=== PATIENT | female | born 1995 | race Caucasian/White ===

== ENCOUNTER 2022-11-07 21:40 | Outpatient (REF) | payer MEDICAID, SELFPAY ==
[2022-11-11 15:10] LABS: Age Gdln ACOG Testing Note (.); IGP, rfx Aptima HPV ASCU Note (.)
== END 2022-11-07 21:41 | disposition home or self-care (01) ==
LOC: LAB 21:40
PROVIDERS: PCP Obstetrics & Gynecology; Visit Provider Obstetrics & Gynecology
DX: Z12.4 Encounter for screening for malignant neoplasm of cervix (principal); Z11.51 Encounter for screening for human papillomavirus (HPV)
CPT/HCPCS: G0145

== ENCOUNTER 2023-02-23 11:03 | Outpatient (OUT) | payer MEDICAID, SELFPAY ==
--- NOTE | 2023-02-23 11:11 | XR_ITS ---
[address] [address] Patient Name: KAIA FRIEND MRN: [id number] date: 1995 Sex: F Assigned Patient Location: [facility] Current Patient Location: Accession/Order Number: [id number] Exam Date: 02/23/2023 11:52 Report Date: 02/24/2023 09:17 At the request of: LRARY NAZARIO Procedure: XR chest 2V EXAM: XR chest 2V HISTORY: Preop exam COMPARISON: None. TECHNIQUE: PA and lateral views of the chest. FINDINGS: The cardiomediastinal silhouette is normal. No focal consolidation is identified. There is no pneumothorax. No pleural effusion is noted. The osseous structures are intact. XR/XR chest 2V IMPRESSION: No acute cardiopulmonary process. Electronically authenticated by: NILESH BOWLES Date: 02/24/2023 09:17
== END 2023-02-23 11:04 | disposition home or self-care (01) ==
LOC: PST 11:05
PROVIDERS: PCP Obstetrics & Gynecology; Visit Provider Obstetrics & Gynecology
DX: Z01.810 Encounter for preprocedural cardiovascular examination (principal); R87.612 Low grade squamous intraepithelial lesion on cytologic smear of cervix (LGSIL); F43.10 Post-traumatic stress disorder, unspecified
CPT/HCPCS: 71046

== ENCOUNTER 2023-03-02 11:15 | Day surgery (SDC) | payer MEDICAID, SELFPAY ==
[2023-02-23 11:41] VITALS: BP 112/72; PULSE 74; RESP 20; TEMP 36.3; O2SAT 100; BMI 19.4
[2023-03-02] VITALS (8 sets, daily range): BP systolic 111–122; BP diastolic 58–82; PULSE 72–101; RESP 12–24; TEMP 36.4; O2SAT 98–100; BMI 19.5
[2023-03-02 11:26] LABS: Basophils Percent Auto 0.7 % (0.2-2.0); Eosinophils Absolute Auto 0.2 10^3/uL (0.0-0.7); Eosinophils Percent Auto 3.4 % (0.9-7.0); Hematocrit 41.5 % (36.0-48.0); Hemoglobin 13.9 g/dL (12.0-16.0); Immature Granulocytes Abs Auto 0.01 10^3/uL (0.00-0.03); Immature Granulocytes Pct Auto 0.2 % (0.0-0.5); Lymphocytes Absolute Auto 2.2 10^3/uL (1.2-3.8); Lymphocytes Percent Auto 41.1 % (20.5-60.0); Mean Corpuscular HGB Conc 33.5 g/dL (29.9-35.2); Mean Corpuscular Volume 92.6 fL (81.0-99.0); Mean Platelet Volume 9.6 fL (9.5-13.5); Monocytes Absolute Auto 0.4 10^3/uL (0.3-0.8); Monocytes Percent Auto 7.1 % (1.7-12.0); Neutrophils Absolute Auto 2.5 10^3/uL (1.4-6.5); Neutrophils Percent Auto 47.5 % (43.0-75.0); Platelet Count 236 10^3/uL (150-450); Red Blood Count 4.48 10^6/uL (4.20-5.40); Red Cell Distribution Width 11.9 % (11.0-15.0); White Blood Count 5.4 10^3/uL (4.0-11.0)
[2023-03-02] MEDS: LACTATED RINGER'S SOLUTION 1,000 ML 50 ML IV (11:41)
[2023-03-02 11:47] LABS: HCG Quantitative <1 mIU/mL
[2023-03-02] MEDS: ONDANSETRON PF 4 MG/2 ML VIAL IV (11:57)
[2023-03-02] MEDS: FAMOTIDINE/PF 20 MG/2 ML VIAL IV (11:58)
--- NOTE | 2023-03-02 13:38 | PM.ONB ---
Brief Operative Note Date of procedure: 03/02/23 Pre-op diagnosis: cervical dysplasia, ptsd Post-op diagnosis: same as pre-op Procedure: colposcopy, exam under anesthesia pt was taken back to operating room where she was given anesthesia, placed in dorsal lithotomy position, the speculum was placed the cervix was identified, vinegar and lugols solution was used, the colposcopy was performed, no dysplasia seen, ecc was performed, pt was awaken by anesthesia after exam under anesthesia was performed(bimanual) excellent hemostasis Anesthesia: MAC Surgeon: Carlos Swain Estimated blood loss (mL): 2 Pathology: other (endocervical currettings) Condition: stable Disposition: PACU
--- NOTE | 2023-03-02 14:10 | PC.NURSE ---
no vaginal drainage noted
--- NOTE | 2023-03-02 14:52 | PC.NURSE ---
Up to bathroom and voids clear yellow without difficulty
== END 2023-03-02 14:54 | disposition home or self-care (01) ==
PROVIDERS: PCP Family Medicine; Visit Provider Obstetrics & Gynecology
PROC: (CPT 940; principal; 2023-03-02 12:30)
DX: R87.612 Low grade squamous intraepithelial lesion on cytologic smear of cervix (LGSIL) (principal); F43.10 Post-traumatic stress disorder, unspecified; F41.8 Other specified anxiety disorders; N93.0 Postcoital and contact bleeding; F31.81 Bipolar II disorder; F17.210 Nicotine dependence, cigarettes, uncomplicated
CPT/HCPCS: 57420; 36415; 84702; 85025; 88305; J2704

== ENCOUNTER 2023-09-13 19:58 | Outpatient (REF) | payer MEDICAID, SELFPAY ==
[2023-09-19 11:20] LABS: Pap IG (Image Guided) Note (.)
== END 2023-09-13 19:59 | disposition home or self-care (01) ==
LOC: LAB 19:58
PROVIDERS: PCP Family Medicine; Visit Provider Obstetrics & Gynecology
DX: R87.612 Low grade squamous intraepithelial lesion on cytologic smear of cervix (LGSIL) (principal)
CPT/HCPCS: G0145

== ENCOUNTER 2024-03-26 19:40 | Outpatient (REF) | payer MEDICAID, SELFPAY ==
--- OUTSIDE RECORDS SUMMARY | 2024-03-26 19:46 | XMS_ITS | CCD ---
Author Organization [facility] Care Team Providers Care Bicycle Technician Name Role Phone Hernan Armas DO Primary Care Provider BRYNN ., DR JUAREZ Attending Unavailable BRYNN ., DR JUAREZ Consulting Unavailable CHANDA, DR HERNAN Qiu Primary Care Unavailable BRYNN ., DR JUAREZ Admitting Unavailable HELGA TYLER Consulting Unavailable HANH PEREIRA Consulting Unavailable BRYNN ., DR JUAREZ Attending Unavailable BRYNN ., DR JUAREZ Admitting Unavailable BRYNN ., DR JUAREZ Admitting Unavailable BRYNN ., DR JUAREZ Attending Unavailable BRYNN ., DR JUAREZ Consulting Unavailable CHANDA, DR HERNAN Qiu Primary Care Unavailable BRYNN ., DR JUAREZ Attending Unavailable BRYNN ., DR JUAREZ Consulting Unavailable CHANDA, DR HERNAN Qiu Primary Care Unavailable BRYNN ., DR JUAREZ Admitting Unavailable HERNAN ARMAS Primary Care Unavailable Hernan Armas DO Primary Care Provider SHAYNA ROBERTS Attending Unavailable LARRY SWAIN Attending Unavailable CULLEN ALVAREZ L Attending Unavailable Cory Daly Attending Unavailable DELPHINE KHALIL Attending Unavailable Cory Daly Attending Unavailable Cory Daly Attending Unavailable Cory Daly Admitting Unavailable Hernan Armas MD Primary Care Provider Allergies Allergy Classification Reported Allergen(s) Allergy Type Date of Onset Reaction(s) Facility (9 sources) Doxycycline; Translations: [DOXYCYCLINE] Drug Allergy 2 Vomiting, GI intolerance [facility] (3 sources) Penicillins; Translations: [PENICILLINS] Propensity to adverse reactions to drug 2 Unknown [facility] Work Phone: (5 sources) Penicillins Propensity to adverse reactions to drug 2 Unknown [facility] Work Phone: (1 source) Benzoyl Peroxide Drug Allergy [facility] (1 source) Doxycycline Drug Allergy [facility] (1 source) Penicillin Drug Allergy [facility] (2 sources) Shellfish Drug allergy (disorder) [facility] (1 source) Liane-Q; Translations: [Liane-Q] Propensity to adverse reactions (disorder) [facility] (1 source) Benzoyl Peroxide Drug Allergy 3 [facility] (1 source) Penicillins Drug Intolerance 2 Unknown [facility] (1 source) Shellfish-Deriv ed Products Propensity to adverse reactions 3 [facility] Medications Current Medications Medication Drug Class(es) Dates Sig (Normalized) Sig (Original) enteric contrast (will be provided with radiology test) (1 source) Start: 10-21-2021 End: 10-21-2021 take 1 dose by mouth once, then take 1 dose by mouth once enteric contrast (will be provided with radiology test) Indications: Nausea and vomiting, unspecified vomiting type Take 1 Each by mouth one time only for [address] ABD/PEL WO Routine order Administer, As Directed One Time Only, via Oral, Rectal, both Oral and Rectal, Enteric Tube, Stoma or Indwelling Catheter, Enteric Contrast as designated per enteric contrast guidelines 1 Each 0 10/21/2021 10/21/2021 Active Comment on above: Take 1 Each by mouth one time only for [address] ABD/PEL WO Routine order Administer, As Directed One Time Only, via Oral, Rectal, both Oral and Rectal, Enteric Tube, Stoma or Indwelling Catheter, Enteric Contrast as designated per enteric contrast guidelines hydrOXYzine hydrochloride 10 mg oral tablet (1 source) Antihistamine take 2 tablets by mouth twice daily as needed for anxiety hydrOXYzine HCl (Atarax) 10 MG tablet 2 TAB(S) ORAL TWICE DAILY NEEDED FOR ANXIETY Active ondansetron 4 mg oral tablet (7 sources) Serotonin-3 Receptor Antagonist take 1 tablet by mouth every eight hours as needed for nausea ondansetron (Zofran) 4 MG tablet Take 4 mg by mouth every 8 (eight) hours if needed for nausea. Active Comment on above: Take 4 mg by mouth e very 8 hours as needed for nausea/vomiting. Completed/Discontinued Medications Medication Drug Class(es) Dates Sig (Normalized) Sig (Original) Albuterol (6 sources) beta2-Adrenergic Agonist ALBUTEROL INHALATION Inhale as instructed as needed. 0 Active Comment on above: Inhale as instructed as needed. 21 day ethinyl estradiol 0.337389 mg/hr / etonogestrel 0.005 mg/hr vaginal system (1 source) Progestin, Estrogen Start: 04-06-2012 End: 10-21-2021 Etonogestrel-Ethiny l Estradiol (NUVARING) 0.12-0.015 mg/24 hr vaginal ring Use 1 Each vaginally as directed. Insert vaginally and leave in place for 3 consecutive weeks, then remove for 1 week. 0 04/06/2012 10/21/2021 Discontinued (Course of therapy completed) Comment on above: Use 1 Each vaginally as directed. Insert vaginally and leave in place for 3 consecutive weeks, then remove for 1 week. ethinyl estradiol 0.035 mg / norgestimate 0.25 mg oral tablet (7 sources) Progestin, Estrogen Start: 03-11-2024 End: 03-26-2024 take 1 tablet by mouth once daily norgestimate-ethiny l estradiol (Sprintec 28) 0.25-35 MG-MCG tablet Indications: Encounter for surveillance of contraceptive pills Take 1 tablet by mouth Daily 90 tablet 03/11/2024 03/26/2024 Discontinued (Reorder) Start: 09-20-2021 take 1 tablet by yohannes th once daily norgestimate 0.25 mg-ethinyl estradiol 35 mcg (SPRINTEC, ORTHO-CYCLEN) 0.25-35 mg-mcg per tablet Take 1 tablet by mouth once daily. 0 09/20/2021 Active Comment on above: Take 1 tablet by yohannes th once daily. lamoTRIgine 100 mg oral tablet (1 source) Mood Stabilizer, Anti-epileptic Agent End: 03-26-20 24 lamoTRIgine (LaMICtal) 100 MG tablet 1 (one) time each day at the same time 03/26/2024 Discontinued lurasidone hydrochloride 40 mg oral tablet (1 source) Atypical Antipsychotic End: 03-26-20 24 lurasidone (Latuda) 40 MG tablet 1 (one) time each day at the same time 03/26/2024 Discontinued tiZANidine 2 mg oral capsule (1 source) Central alpha-2 Adrenergic Agonist End: 03-26-20 tiZANidine (Zanaflex) 2 MG capsule Take 2 mg by mouth as needed at bedtime. 03/26/2024 Discontinued traZODone hydrochloride 50 mg oral tablet (1 source) Serotonin Reuptake Inhibitor Start: 09-14-19 End: 03-26-20 24 take 1 tablet by mouth at bedtime traZODone (Desyrel) 50 MG tablet Take 50 mg by mouth at bedtime. 09/13/2022 03/26/2024 Discontinued Problems Active Problems Problem Classification Problem Date Documented Date Episodic/Chronic Anxiety disorders (2 sources) Anxiety disorder, unspecified; Translations: [Mixed anxiety and depressive disorder] Onset: 01-19-2022 11-02-2022 Chronic Gastroduodenal ulcer (except hemorrhage) (1 source) Gastric ulcer; Translations: [Gastric ulcer, unspecified as acute or chronic, without hemorrhage or perforation] Onset: 11-02-2022 11-02-2022 Chronic Immunizations and screening for infectious disease (1 source) Encounter for screening for human papillomavirus (HPV); Translations: [ENC SCREENING HUMAN PAPILLOMAVIRUS] Onset: 07-12-2022 Episodic Mood disorders (2 sources) Bipolar II disorder; Translations: [Bipolar II disorder, most recent episode major depressive] Onset: 01-19-2022 11-02-2022 Chronic Nausea and vomiting (2 sources) Nausea and vomiting; Translations: [Nausea with vomiting, unspecified] Episodic Other female genital disorders (1 source) Postcoital bleeding; Translations: [Postcoital and contact bleeding] Onset: 11-02-2022 11-02-2022 Chronic Other injuries and conditions due to external causes (1 source) Unspecified injury of head, initial encounter; Translations: [Closed head injury, initial encounter] Onset: 10-21-2022 Episodic Other nutritional; endocrine; and metabolic disorders (2 sources) Weight loss; Translations: [Abnormal weight loss] Episodic Other upper respiratory disease (1 source) Other specified disorders of nose and nasal sinuses; Translations: [Nose pain] Onset: 10-21-2022 Episodic Other upper respiratory disease (1 source) Nasal congestion; Translations: [Sinus congestion] Onset: 10-21-2022 Episodic Substance-related disorders (2 sources) Nicotine dependence, cigarettes, uncomplicated; Translations: [Cannabis dependence] Onset: 01-19-2022 11-02-2022 Chronic Unclassified (1 source) CONTACT W/AND (SUSP) EXPOS COVID-19; Translations: [CONTACT W/AND (SUSP) EXPOS COVID-19] Onset: 01-15-2022 Past or Other Problems Problem Classification Problem Date Documented Date Episodic/Chronic Cancer of cervix (1 source) High grade squamous intraepithelial lesion on cytologic smear of cervix (HGSIL); Translations: [HGSIL ON CYTOLOGIC SMEAR OF CERVIX] Onset: 01-19-2022 Episodic Other female genital disorders (4 sources) Dysplasia of cervix uteri, unspecified; Translations: [DYSPLASIA CERVIX UTERI UNSPECIFIED] Onset: 01-14-2022 Episodic Other female genital disorders (1 source) Dysplasia of cervix; Translations: [Dysplasia of cervix uteri, unspecified] Onset: 11-02-2022 11-02-2022 Episodic Other screening for suspected conditions (not mental disorders or infectious disease) (5 sources) Encounter for screening for malignant neoplasm of cervix; Translations: [Abnormal cytology findings] Onset: 07-11-2022 Episodic Results Test Name Value Interpretation Reference Range Facility Family Medicine Office/Clini c Noteon 09-21-2023 Family Medicine Office/Clinic Note Chief Complaint sinus pressure HPI Staff 28 YEAR OLD FEMALE PRESENTS WITH green mucus in nose, sinus congestion, headaches, ear pain, slight sore throat x 2 weeks Frequent sinus infections, referral to ent History of Present Illness Reviewed and agree with above documented HPI by medical dermatologist. Portions of this record may have been created with voice recognition artificial intelligence software, specifically [employer], [employer] and or [employer]. Substitutions may have occurred due to the inherent limitations of voice recognition and artificial intelligence software. Patient is a 28-year-old female who presents to [facility], for his headache, sinus congestion, bilateral ear pain, sore throat, with a history of sinus infection, but no allergies, has a referral to ENT, has not had the appointment yet, states symptoms that started over 2 weeks ago, worsening symptoms past few days, states she tried wgfk-dnk-tkxikjr medication without any relief, occasionally does have relief with Maggi pot. Patient states she is not concerned about being exposed to influenza, COVID-19, or strep pharyngitis. Patient denies any worsening headache, dizziness, fevers, chills, nausea or vomiting, difficulty swallowing, cough, chest pain, shortness of breath, weakness, or facial paresthesias. Review of Systems PHQ Score Initial Depression Screen Score: 0 SCORE Physical Exam Vitals & Measurements T: 36.7 ?C(Oral) HR: 74(Peripheral) BP: 116/74 SpO2: 97% HT: 65 in HT: 164 cm WT: 52.1 kg WT: 114.62 lb BMI: 19.37 General: Well developed, well nourished, in no acute distress. Patient does appears ill but not septic. N o respiratory distress. Answers questions appropriately and in complete sentences, follows commands appropriately. Head: Normocephalic/atrauma tic. Frontal and bilateral maxillary sinus tenderness and pressure with palpation. No facial swelling cellulitis. Eyes: Pupils equal, round, and reactive to light. Conjunctivae and sclerae normal, and extraocular movements intact Ears: Bilateral TMs bulging, right greater than left, no signs of otitis media or otitis externa. Hearing is intact. Nose: No deformity, discharge, inflammation, or lesions Mouth: Mucous membranes moist. Normal oropharynx, and posterior pharynx with nasal drip and without erythremia, exudates, lesions, or enlarged tonsils. No trismus. No difficulty swallowing. Neck: anterior cervical adenopathy bilaterally No mastoid tenderness. Lungs: Normal respiratory effort and clear to auscultation throughout, no wheezing, no rales Cardio: regular rate and rhythm, no murmur Extremity: Patient is able to move all 4 extremities equally without pain or weakness. Neurologic: Grossly normal Skin: No rashes, ulcerations, or suspicious lesions Lymph Nodes: no lad Mental Status: alert, active Assessment/Plan Patient prefers no swabs at this time. No breathing treatment or chest imaging also not indicated at this time. 28-year-old female presented to [facility], for acute sinusitis, symptoms started greater than 2 weeks ago, patient did appear ill but not septic, has tried waef-nbf-oiutsls medication without any relief, history of chronic sinus infection, has an appointment set up for be evaluated by ENT specialist, patient was given a prescription for Zithromax, instructed take rqoy-czb-jgulpmg ibuprofen Tylenol as needed for pain and fever, drink plenty water stay hydrated, and follow-up with primary care provider as well. 1. Acute sinusitis (J01.90: Acute sinusitis, unspecified) See above Ordered: azithromycin, 500 mg = 1 tab(s), Oral, Daily, X 5 day(s), # 5 tab(s), Refills(s) 0, Pharmacy: [facility]/pharmacy #[id number], 164, cm, 09/21/23 14:30:00 EDT, Height/Length Dosing, 52.1, kg, 09/21/23 14:30:00 EDT, Weight Dosing Body mass index (BMI) of 19 or less in adult (Z68.1: Body mass index [BMI] 19.9 or less, adult) Ordered: Body Mass Index (BMI) documented 3008F Screening due (Z13.9: Encounter for screening, unspecified) Ordered: Current tobacco smoker 1034F Depression Screening Negative 3352F Follow-up With When Contact Information Hernan ARMAS DO [address] [facility] [place] [address]- Additional Instructions: Patient Education Sinus Infection, Adult, Ecyd-lg-Mwge Problem List/Past Medical History Ongoing Acute sinusitis Asthma Cyclic vomiting syndrome Digestive disorder Generalized anxiety disorder Hair loss Heavy periods HSIL (high grade squamous intraepithelial lesion) on Pap smear of cervix Hypermobility of joint Posttraumatic stress disorder Historical No qualifying data Procedure/Surgical History Excision of tonsil (2012), Colonoscopy (2011). Medications hydrOXYzine hydrochloride 10 mg Tab, 20 mg= 2 tab(s), Oral, BID, PRN hydrOXYzine hydrochloride 10 mg Tab, 20 mg= 2 tab(s), Oral, BID, PRN, 1 refills Sprintec oral tablet, 1 tab(s), Oral, Daily, 1 refills tiZANidine 4 mg Tab (more content not included)... Normal [facility] Comment on above: Result Comment: Elec tronically Signed By: DELPHINE KHALIL PA-C\.everett\Date and Time Signed: 09/21/23 15:10 EDT Patient Educationon 09-21-19 Patient Education Infectious Disease Sinus Infection, Adult A sinus infection is soreness and swelling (inflammation) of your sinuses. Sinuses are hollow spaces in the bones around your face. They are located: ? Around your eyes. ? In the middle of your forehead. ? Behind your nose. ? In your cheekbones. Your sinuses and nasal passages are lined with a fluid called mucus. Mucus drains out of your sinuses. Swelling can trap mucus in your sinuses. This lets germs (bacteria, virus, or fungus) grow, which leads to infection. Most of the time, this condition is caused by a virus. What are the causes? ? Allergies. ? Asthma. ? Germs. ? Things that block your nose or sinuses. ? Growths in the nose (nasal polyps). ? Chemicals or irritants in the air. ? A fungus. This is rare. What increases the risk? ? Having a weak body defense system (immune system). ? Doing a lot of swimming or diving. ? Using nasal sprays too much. ? Smoking. What are the signs or symptoms? The main symptoms of this condition are pain and a feeling of pressure around the sinuses. Other symptoms include: ? Stuffy nose (congestion). This may make it hard to breathe through your nose. ? Runny nose (drainage). ? Soreness, swelling, and warmth in the sinuses. ? A cough that may get worse at night. ? Being unable to smell and taste. ? Mucus that collects in the throat or the back of the nose (postnasal drip). This may cause a sore throat or bad breath. ? Being very tired (fatigued). ? A fever. How is this diagnosed? ? Your symptoms. ? Your medical history. ? A physical exam. ? Tests to find out if your condition is short-term (acute) or long-term (chronic). Your doctor may: ? Check your nose for growths (polyps). ? Check your sinuses using a tool that has a light on one end (endoscope). ? Check for allergies or germs. ? Do imaging tests, such as an MRI or CT scan. How is this treated? Treatment for this condition depends on the cause and whether it is short-term or long-term. ? If caused by a virus, your symptoms should go away on their own within 10 days. You may be given medicines to relieve symptoms. They include: ? Medicines that shrink swollen tissue in the nose. ? A spray that treats swelling of the nostrils. ? Rinses that help get rid of thick mucus in your nose (nasal saline washes). ? Medicines that treat allergies (antihistamines). ? Efro-gzf-bkotels pain relievers. ? If caused by bacteria, your doctor may wait to see if you will get better without treatment. You may be given antibiotic medicine if you have: ? A very bad infection. ? A weak body defense system. ? If caused by growths in the nose, surgery may be needed. Follow these instructions at home: Medicines ? Take, use, or apply ujjt-oph-rwiqawz and prescription medicines only as told by your doctor. These may include nasal sprays. ? If you were prescribed an antibiotic medicine, take it as told by your doctor. Do not stop taking it even if you start to feel better. Hydrate and humidify ? Drink enough water to keep your pee (urine) pale yellow. ? Use a cool mist humidifier to keep the humidity level in your home above 50%. ? Breathe in steam for 10?15 minutes, 3?4 times a day, or as told by your doctor. You can do this in the bathroom while a hot shower is running. ? Try not to spend time in cool or dry air. Rest ? Rest as much as you can. ? Sleep with your head raised (elevated). ? Make sure you get enough sleep each night. General instructions ? Put a warm, moist washcloth on your face 3?4 times a day, or as often as told by your doctor. ? Use nasal saline washes as often as told by your doctor. ? Wash your hands often with soap and water. If you cannot use soap and water, use hand elephant tamer. ? Do not smoke. Avoid being around people who are smoking (secondhand smoke). ? Keep all follow-up visits. Contact a doctor if: ? You have a fever. ? Your symptoms get worse. ? Your symptoms do not get better within 10 days. Get help right away if: ? You have a very bad headache. ? You cannot stop vomiting. ? You have very bad pain or swelling around your face or eyes. ? You have trouble seeing. ? You feel confused. ? Your neck is stiff. ? You have trouble breathing. These symptoms may be an emergency. Get help right away. Call 911. ? Do not wait to see if the symptoms will go away. ? Do not drive yourself to the hospital. Summary ? A sinus infection is swelling of your sinuses. Sinuses are hollow spaces in the bones around your face. ? This condition is caused by tissues in your nose that become inflamed or swollen. This traps germs. These can lead to infection. ? If you were prescribed an antibiotic medicine, take it as told by your doctor. Do not stop taking it even if you start to feel better. ? Keep all follow-up visits (more content not included)... Normal [facility] Ambulatory Visit Summaryon 0 07-24-2023 Ambulatory Visit Summary MADDY HUGO :1995 Visit Date:07/24/2023 Ambulatory Visit Instructions Your Diagnosis Sinusitis Impacted cerumen of both ears Your Care Team Attending Physician - Cory Daly PA-C Primary Care Physician - Hernan ARMAS DO This Is Your Medications List azithromycin (Zithromax Z-Elias 250 mg oral tablet) Contact prescribing physician if questions or concerns brompheniramine/dextr omethorphan/PSE (Bromfed DM oral syrup) ethinyl estradiol-norgestimat e (Sprintec oral tablet) hydrOXYzine (hydrOXYzine hydrochloride 10 mg Tab) hydrOXYzine (hydrOXYzine hydrochloride 10 mg Tab) ondansetron (Zofran ODT 4 mg Tab-Dis) tizanidine (tiZANidine 4 mg Tab) trazodone (traZODONE 50 mg Tab) Procedures Performed Excision of tonsil (2012), Colonoscopy (2011). Discharge Vitals Temperature (Oral) 36.7 ?C Heart Rate (Peripheral) 67 Blood Pressure 114/66 Height 164 cm Height 65 in Weight 50 kg Weight 110 lb BMI 18.59 What to do next You Need to Schedule the Following Appointments Follow Up with Hernan ARMAS DO, [place] When: Where: [address] [facility] [place] [address]- Medications What How Much When Why Instructions New azithromycin (Zithromax Z-Elias 250 mg oral tablet) 1 Packets By Mouth As Directed Sinusitis Duration: 5 Days as directed on package labeling Pickup at [facility]/pharmacy #[id number] Unchanged brompheniramine/ dextromethorphan/ PSE (Bromfed DM oral syrup) 5 Milliliter By Mouth 4 times a day as needed for for cough and congestion Contact prescribing physician if questions or concerns Unchanged ethinyl estradiol-norgestimat e (Sprintec oral tablet) 1 Tablets By Mouth Every day Contact prescribing physician if questions or concerns Unchanged hydrOXYzine (hydrOXYzine hydrochloride 10 mg Tab) 2 Tablets By Mouth 2 times a day as needed for as needed for anxiety Contact prescribing physician if questions or concerns Unchanged hydrOXYzine (hydrOXYzine hydrochloride 10 mg Tab) 2 Tablets By Mouth 2 times a day as needed for as needed for anxiety covering for Dr. Armas Contact prescribing physician if questions or concerns Unchanged ondansetron (Zofran ODT 4 mg Tab-Dis) 1 Tablets By Mouth Every 8 hours as needed for Nausea/Vomiting Contact prescribing physician if questions or concerns Unchanged tizanidine (tiZANidine 4 mg Tab) 1 Tablets By Mouth Every 8 hours Contact prescribing physician if questions or concerns Unchanged trazodone (traZODONE 50 mg Tab) 1 Tablets By Mouth Once a day (at bedtime) Contact prescribing physician if questions or concerns Pharmacy Information [facility]/pharmacy #[id number]: [address], [place] [id number] [phone] Medications and Immunizations Administered Not Given influenza virus vaccine, inactivated, Postpone due to refusal Allergies Liane-Q (Muscle atrophy) doxycycline (rash) penicillins (rash) Problems Ongoing - Any problem that you are currently receiving treatment for. Asthma Cyclic vomiting syndrome Digestive disorder Generalized anxiety disorder Hair loss Heavy periods HSIL (high grade squamous intraepithelial lesion) on Pap smear of cervix Hypermobility of joint Posttraumatic stress disorder Patient Survey You may receive a survey via text or e-mail asking about your office visit. Please share your experience with us by completing your survey. We appreciate your feedback and thank you for choosing us for your care. Education Materials Ear Irrigation Ear irrigation is a procedure to wash dirt and wax out of your ear canal. This procedure is also called lavage. You may need ear irrigation if you are having trouble hearing because of a buildup of earwax. You may also have ear irrigation as part of the treatment for an ear infection. Getting wax and dirt out of your ear canal can help ear drops work better. Tell a health care provider about: ? Any allergies you have. ? All medicines you are taking, including vitamins, herbs, eye drops, creams, and cbye-jkd-bcegaeq medicines. ? Any problems you or family members have had with anesthetic medicines. ? Any blood disorders you have. ? Any surgeries you have had. This includes any ear surgeries. ? Any medical conditions you have. ? Whether you are or may be . What are the risks? Generally, this is a safe procedure. However, problems may occur, including: ? Infection. ? Pain. ? Hearing loss. ? Fluid and debris being pushed through the eardrum and into the middle ear. This can occur if there are holes in the eardrum. ? Ear irrigation failing to work. What happens before the procedure? ? You will talk with your provider about the procedure and plan. ? You may be given ear drops to put in your ear 15?20 minutes before irrigation. This helps loosen the wax. What happens during the procedure? ? A syringe is filled with water or saline (more content not included)... Normal [facility] Family Medicine Office/Clini c Noteon 07-24-2023 Family Medicine Office/Clinic Note Chief Complaint Current pt cough, chest congestion, sinus pressure, HPI Staff 28 yo female here today with sinus, uri Pt was seen 07/16 for uri Pt states she is still not feeling well, fever gone, Complains of chest congestion, SOB, sinus pressure Pt has been taking mucinex, bromfed History of Present Illness I have reviewed and verified the staff HPI to be accurate for this encounter. Portions of this record have been created with voice recognition software. Occasional wrong-word or ?ozhlh-k-hsuz? substitutions may have occurred due to the inherent limitations of voice recognition software. 28 yo female presents today with cc of cough, sinus congestion. Pt states she was seen x one week ago, and at that time testing for both strep and influenza that came back negative. Patient states she continues with cough and nasal congestion in which she states cough is occasionally productive of green phlegm. She has been taking the Bromfed that was prescribed to her in addition to taking tgyw-cnm-yszabot Mucinex. Patient states that her symptoms started approximately 10 days ago she did have fever for the first 2 to 3 days in which fever has resolved. Denies fever in the last 2 to 3 days. States continuation of cough but states lots of sinus congestion pressure and headache is concerned for sinusitis. Patient also notes that the right ear feels plugged. He denies any abdominal pain nausea vomiting or diarrhea. Denies any history of asthma. States former smoker quit x 2 weeks ago. Medication allergies to doxycycline and penicillin. States she is seeing a different physician for possible connective tissue disorder which he tolerated to refrain from use of fluoroquinolones if possible. Patient has no other concerns at this time. Review of Systems PHQ Score Initial Depression Screen Score: 0 SCORE ROS negative unless otherwise stated in HPI. Physical Exam Vitals & Measurements T: 36.7 ?C(Oral) HR: 67(Peripheral) BP: 114/66 SpO2: 95% HT: 65 in HT: 164 cm WT: 50 kg WT: 110 lb BMI: 18.59 General: Well developed, well nourished, in no acute distress Eyes: Bilateral conjunctiva within normal limits no injection Ears: Bilateral TMs not visualized due to bilateral cerumen impaction. External auditory canals otherwise within normal limits no erythema or edema. Nose: moderate nasal mucosa inflammation and edema bilateral erythematous swollen boggy nasal turbinates bilaterally no active drainage. Pressure and pain with palpation over maxillary sinuses. Mouth: Mucous membranes moist. Normal oropharynx, and posterior pharynx without lesions or exudates. Tongue normal Neck: no adenopathy Lungs: Lung sounds are clear bilaterally. No wheezing rhonchi or crackles on exam. Cardio: S1, S2, regular rhythm. No murmurs gallops or rubs. Abdomen: not assessed Musculoskeletal: not assessed Extremity: not assessed Neurologic: not assessed Skin: not assessed Mental Status: Alert and oriented x3. Normal mood and affect Assessment/Plan I spoke with patient and given duration of symptoms x 10 days we will treat for acute sinusitis. She may continue eqhk-luf-csruubk Flonase as well as Bromfed-DM in regards to symptomatic treatment. Patient had a bilateral ear irrigation completed which moderate amount of cerumen is removed and no concern for ear infection at this time. Patient tolerated bilateral ear irrigation well. Understands she may be sore for 2 to 3 days will otherwise return if needed will follow closely with primary care provider patient agrees and understands plan. 1. Sinusitis (J32.9: Chronic sinusitis, unspecified) Given duration of symptoms and exam, will cover for sinusitis with zithromax. Finish entire course. Fluids/rest, PRN tylenol/ibuprofen for pain and/or fever encouraged. May use flonase for symptomatic tx. Follow up with PCP if not improving over next 5-7 days with ATB or significantly worsening. Patient verbalized understanding of treatment plan. Ordered: azithromycin, = 1 packet(s), Oral, As Directed, as directed on package labeling, X 5 day(s), # 6 tab(s), Refills(s) 0, Pharmacy: [facility]/pharmacy #[id number], 164, cm, 07/24/23 12:46:00 EDT, Height/Length Dosing, 50, kg, 07/24/23 12:46:00 EDT, Weight Dosing 2. Impacted cerumen of both ears (H61.23: Impacted cerumen, bilateral) Both ears flushed out by CIARAN Balderas. Patient tolerated well. moderate amount of cerumen removed. After flushing, TMs and canals appear normal without any sign of infection. Discussed ears may feel a little sore for the next 2 days. Fu with PCP if any further concerns. If needs ears flushed out in future may return to convenient care office. pt is of understanding. Ordered: Ear Irrigation [id number] Ear Irrigation [id number] Follow-up With When Contact Information Hernan ARMAS DO, [facility] [address] [facility] [place] [address]- Additional Instructions: Patient Education Ear Irrigation Earwax Buildup, Adult Sinus Infection, Adult Problem List/Past (more content not included)... Normal [facility] Comment on above: Result Comment: Elec tronically Signed By: Addy MOREIRA, Cory Russ\.br\Date and Time Signed: 07/24/23 13:23 EDT Family Medicine Office/Clini c Noteon 07-19-2023 Family Medicine Office/Clinic Note Chief Complaint Current pt sore throat, fever, chills, cold sweats, headache, bodyaches, fatigue HPI Staff 28 yo female here today with flu symptoms Symptoms began last night Complains of sneezing, watery eyes, headache, sore throat, bodyaches, fever, cold sweats, chills, fatigue Pt has taken tylenol, mucinex History of Present Illness Maddy Hugo is a 28-year-old female here today for an acute visit. Chief complaint fevers and URI symptoms. Onset was last evening. She is requesting COVID and flu testing. Symptoms include fevers, chills, body aches, headache, fatigue, runny nose, watery eyes, sneezing. Using Tylenol Mucinex [id number]-[id number]. Review of Systems PHQ Score Initial Depression Screen Score: 0 SCORE ROS - Provider Constitutional: no fever, no chills, no sweats, no weakness HEENT: as per hpi Respiratory: no shortness of breath, no cough Cardiovascular: no chest pain Skin: no rash Physical Exam Vitals & Measurements T: 36.8 ?C(Oral) HR: 62(Peripheral) BP: 116/70 SpO2: 99% HT: 65 in HT: 164 cm WT: 51.5 kg WT: 113.3 lb BMI: 19.15 General: Well-appearing adult female, no acute distress, well-hydrated Eyes: Pupils equal, round, and reactive to light. Conjunctivae and sclerae normal, and extraocular movements intact Ears: No deformity or lesion of external ear. Canals and TM appear normal bilaterally. TM?s intact, not inflamed, with normal light reflex. Hearing grossly normal to conversational speech Nose: No deformity, discharge, inflammation, or lesions Mouth: Mucous membranes moist. Normal oropharynx, and posterior pharynx without lesions or exudates. Tongue normal Neck: Supple, no lymphadenopathy Lungs: Equal, nonlabored respirations, lungs are clear anterior and posterior 99% on room air Cardio: Regular rate and rhythm, normal S1 and S2, no murmur, no rub Musculoskeletal: Steady independent gait Extremity: No swelling Neurologic: Grossly normal Skin: Warm dry intact Mental Status: Alert and oriented x3. Normal mood and affect Assessment/Plan 1. Flu-like symptoms (R68.89: Other general symptoms and signs) Discussed likely viral etiology of her mild symptoms. We are on day 2. No sign of secondary bacterial infection. Discussed results of her in office testing-, influenza, and strep testing are all negative. Supportive measures with Bromfed-stop other abwj-fwt-iqjbdmi cough and cold preparations of taking. She may take Tylenol Motrin as needed body aches and fevers. Discussed days 3-5 generally worst of the symptoms, symptoms should be improving after 7 to 10 days. Symptoms persisting beyond expected duration should be followed up with primary team. 2. Viral URI (J06.9: Acute upper respiratory infection, unspecified) Supportive care as above. Portions of this record may have been created with voice recognition artificial intelligence software, specifically [employer] and or [employer]. Substitutions may have occurred due to the inherent limitations of voice recognition and artificial intelligence software. 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 Medications Bromfed DM oral syrup, 5 mL, Oral, QID, PRN hydrOXYzine hydrochloride 10 mg Tab, 20 mg= 2 tab(s), Oral, BID, PRN hydrOXYzine hydrochloride 10 mg Tab, 20 mg= 2 tab(s), Oral, BID, PRN, 1 refills Sprintec oral tablet, 1 tab(s), Oral, Daily, 1 refills tiZANidine 4 mg Tab, 4 mg= 1 tab(s), Oral, q8hr, 1 refills traZODONE 50 mg Tab, 50 mg= 1 tab(s), Oral, Once a day (at bedtime), 1 refills Zofran ODT 4 mg Tab-Dis, 4 mg= 1 tab(s), Oral, q8hr, PRN, 1 refills Allergies Liane-Q (Muscle atrophy) doxycycline (rash) penicillins (rash) Social History Alcohol 1-2 times per week, 10/17/2018 Substance Abuse Tobacco - High Risk, 02/08/2021 10 or more cigarettes (1/2 pack or more)/day in last 30 days Tobacco Use:. Current vaping or e-cigarette use Smokeless Tobacco Use:. Cigarettes, Vaping, Ready to change: Yes. Household tobacco concerns: No. Yes, 07/17/2023 Family History Family history is negative Immunizations Vaccine Date Status Comments influenza virus vaccine, inactivated - Not Given Postpone due to refusal SARS-CoV-2 (COVID-19) Ad26 vaccine 08/01/2020 Recorded 2022-10-02: TPVALL influenza virus vaccine, inactivated - Not Given Patient Refuses diphtheria/pertussis, acel/tetanus adult 12/07/2017 Recorded measles/mumps/rubella virus vaccine 12/05/2001 Recorded poliovirus vaccine, inactivated 08/29/1997 Recorded DTaP, unspecified formulation 08/29/1997 Recorded measles/mumps/ru (more content not included)... Normal [facility] Comment on above: Result Comment: Elec tronically Signed By: Cheryl ALVAREZ CNP\.br\Date and Time Signed: 07/19/23 07:40 EDT Ambulatory Visit Summaryon 0 07-17-2023 Ambulatory Visit Summary MADDY HUGO :1995 Visit Date:07/17/2023 Ambulatory Visit Instructions Your Diagnosis Flu-like symptoms Viral URI Your Care Team Attending Physician - Cheryl ALVAREZ CNP Primary Care Physician - Hernan ARMAS DO This Is Your Medications List brompheniramine/dextr omethorphan/PSE (Bromfed DM oral syrup) ethinyl estradiol-norgestimat e (Sprintec oral tablet) hydrOXYzine (hydrOXYzine hydrochloride 10 mg Tab) hydrOXYzine (hydrOXYzine hydrochloride 10 mg Tab) ondansetron (Zofran ODT 4 mg Tab-Dis) tizanidine (tiZANidine 4 mg Tab) trazodone (traZODONE 50 mg Tab) Procedures Performed Excision of tonsil (2012), Colonoscopy (2011). Discharge Vitals Temperature (Oral) 36.8 ?C Heart Rate (Peripheral) 62 Blood Pressure 116/70 Height 164 cm Height 65 in Weight 51.5 kg Weight 113.3 lb BMI 19.15 Medications What How Much When Instructions New brompheniramine/ dextromethorphan/ PSE (Bromfed DM oral syrup) 5 Milliliter By Mouth 4 times a day as needed for for cough and congestion Pickup at [facility]/pharmacy #[id number] Unchanged ethinyl estradiol-norgestimat e (Sprintec oral tablet) 1 Tablets By Mouth Every day Unchanged hydrOXYzine (hydrOXYzine hydrochloride 10 mg Tab) 2 Tablets By Mouth 2 times a day as needed for as needed for anxiety Unchanged hydrOXYzine (hydrOXYzine hydrochloride 10 mg Tab) 2 Tablets By Mouth 2 times a day as needed for as needed for anxiety covering for Dr. Armas Unchanged ondansetron (Zofran ODT 4 mg Tab-Dis) 1 Tablets By Mouth Every 8 hours as needed for Nausea/Vomiting Unchanged tizanidine (tiZANidine 4 mg Tab) 1 Tablets By Mouth Every 8 hours Unchanged trazodone (traZODONE 50 mg Tab) 1 Tablets By Mouth Once a day (at bedtime) Pharmacy Information [facility]/pharmacy #[id number]: [address] [place], [place] [id number] [phone] Medications and Immunizations Administered Not Given influenza virus vaccine, inactivated, Postpone due to refusal Allergies Liane-Q (Muscle atrophy) doxycycline (rash) penicillins (rash) Problems Ongoing - Any problem that you are currently receiving treatment for. Asthma Cyclic vomiting syndrome Digestive disorder Generalized anxiety disorder Hair loss Heavy periods HSIL (high grade squamous intraepithelial lesion) on Pap smear of cervix Hypermobility of joint Posttraumatic stress disorder Patient Survey You may receive a survey via text or e-mail asking about your office visit. Please share your experience with us by completing your survey. We appreciate your feedback and thank you for choosing us for your care. [facility] Shahram 01-05-2023 [facility] Telephone ([employer]) MADDY HUGO ([id number]) 1995 F Date Time Provider Department 01/05/23 SHABNAM SHAHID [employer] During your visit today, we recorded the following information about you: Janki Leija 01/05/2023 3:40 PM Signed Left message for Patient to call to schedule consult with Dr. Shahid. Allergies As of Date: 01/05/2023 Noted Allergy Reaction DOXYCYCLINE 10/21/2021 11 - Vomiting PENICILLINS 04/06/2012 16 - Unknown Date Reviewed: 10/21/2022 Reviewed by: Nora Brady, RE - Fully Assessed Reason for Visit: Appointment [[id number]] Cmt: Left message for Patient to call to schedule consult with Dr. Shahid. Prescriptions as of 01/05/2023 - norgestimate 0.25 mg-ethinyl estradiol 35 mcg (SPRINTEC, ORTHO-CYCLEN) 0.25-35 mg-mcg per tablet Take 1 tablet by mouth once daily. - ondansetron (ZOFRAN) 4 mg tablet Take 4 mg by mouth every 8 hours as needed for nausea/vomiting. - ALBUTEROL INHALATION Inhale as instructed as needed. Problem List As Of Date: 01/05/2023 (None) Encounter Status:Closed by JANKI LEIJA on 01/05/23 Normal [facility] [address] FACIAL BONE/DIVYA WO IVCON on 10-21-2022 CT FACIAL BONE/DIVYA WO IVCON * * *Final Report* * * DATE OF EXAM: Oct 21 2022 5:45PM [facility] 0507 - CT FACIAL BONE/DIVYA WO IVCON / PROCEDURE REASON: Nasal fracture suspected * * * * Physician Interpretation * * * * EXAMINATION: CT FACIAL BONE/DIVYA WO IVCON CLINICAL HISTORY: Nasal fracture suspected Technique: Spiral high resolution axial unenhanced images were obtained through the facial bones with sagittal and coronal planar reconstructions. MQ: [id number] CT Radiation dose: Integrated Dose-Length Product (DLP) for this visit = 424 mGy*cm. CT Dose Reduction Employed: Automated exposure control(AEC) and iterative recon COMPARISON: None. RESULT: Window Shade Estimator (topogram) images: No significant findings. Soft Tissues: No significant superficial soft tissue swelling. Facial bones: No evidence of an acute fracture in the visualized facial bones. Orbits: No evidence of an acute fracture. The globes are intact. The soft tissue planes of the orbits are maintained. Paranasal Sinuses: The paranasal sinuses are clear. Foreign Bodies: No evidence of radiopaque foreign bodies. Other: No evidence of a remote fracture. No lytic or blastic process seen in the facial bones. IMPRESSION: No evidence of acute facial bone fracture. Specifically, no evidence of nasal bone fracture. Cane Flume Chute Operator: GRETEL Transcribe Date/Time: Oct 21 2022 6:24P Dictated by : FARIBA CROOK MD This examination was interpreted and the report reviewed and electronically signed by: FARIBA CROOK MD on Oct 21 2022 6:27PM EST [id number] N [facility] ED NOTEon 10-21-2022 ED NOTE HNO ID: [id number] Author: Katerin Milton RN Service: ? Author Type: Registered Nurse Type: ED Notes Filed: 10/21/2022 6:59 PM Note Text: Patient received written and verbal discharge instructions. Patient verbalizes understanding. All questions answered. Instructed to follow up with primary care doctor or follow-up doctor. No acute distress noted upon discharge. Instructed to come back to emergency room if symptoms worsen. Pt verbalized understanding. All belongings with patient. Pt ambulated with steady gait out of ED. [facility] ED NOTE HNO ID: [id number] Author: Nora Brady RN Service: ? Author Type: Registered Nurse Type: ED Notes Filed: 10/21/2022 4:30 PM Note Text: Patient arrived to ED with complaints of injury to nose from dog hitting her in the nose three days ago. Plan of care: -Monitor Patient's Vital Signs for changes in condition -Monitor patient for changes in pain -Maintain patient safety and privacy -Provide comfort measures -Call light in place -Siderails up, bed in locked and low position [facility] ED PROV NOTEon 10-21-2022 ED PROV NOTE HNO ID: [id number] Author: Rylie Christensen PA-C Service: Emergency Medicine Author Type: Physician Candy Counter Clerk Type: ED Provider Notes Filed: 10/21/2022 7:11 PM Note Text: ED Provider Note Patient Name: Maddy Hugo : 1995 SERVICE DATE: 10/21/22 History Patient presents with: Nose Injury Patient is a 27-year-old female with no past medical history who presents today with nose pain. Patient states that 3 days ago her great Andres dog accidentally hit her in the nose. Patient states that she did not lose consciousness when this happened but it did start her initially when it happened. She did have a bloody nose initially when it happened. She has had pain and tenderness to the nose since then. She endorses some sinus congestion and pressure as well. She has mild intermittent headaches. She does not notice any obvious deformity to the nose. She denies blurry vision, difficulty breathing through the nose, nausea, vomiting. PAST MEDICAL HISTORY Diagnosis Date Tonsillitis allergies, ovarian cyst PAST SURGICAL HISTORY Procedure Laterality Date COLONOSCOPY EGD FAMILY HISTORY Problem Relation Age of Onset None Unknown Social History Tobacco Use Smoking status: Every Day Types: Cigarettes Smokeless tobacco: Never Substance and Sexual Activity Alcohol use: No Drug use: Not on file Sexual activity: Not on file ALLERGIES Allergen Reactions Doxycycline Vomiting Penicillins Unknown Review of Systems HENT: Positive for congestion, nosebleeds, sinus pressure and sinus pain. Negative for facial swelling. Eyes: Negative for visual disturbance. Gastrointestinal: Negative for nausea and vomiting. Neurological: Positive for headaches. Negative for dizziness. All other systems reviewed and are negative. Physical Exam Vitals BP Pulse Temp Temp src Resp SpO2 Weight Height 10/21/22 1630 10/21/22 1630 10/21/22 1628 10/21/22 1628 10/21/22 1628 10/21/22 1630 10/21/22 1628 -- 130/72 86 36.7 ?C (98 ?F) Temporal 18 100 % 45.4 kg (100 lb) Physical Exam Vitals and nursing note reviewed. Constitutional: Appearance: Normal appearance. HENT: Head: Normocephalic. Nose: Comments: Tenderness to the nasal bridge. No nasal deformity or swelling appreciated. No ecchymosis. No septal hematoma. No epistaxis. Abdominal: Palpations: Abdomen is soft. Musculoskeletal: Cervical back: Normal range of motion and neck supple. Skin: General: Skin is warm and dry. Neurological: General: No focal deficit present. Mental Status: She is alert. Psychiatric: Mood and Affect: Mood normal. Diagnostic Testing ED Labs Ordered and Reviewed - No data to display Procedures ED Course / Clinical Impression Clinical Impressions as of 10/21/22 1908 Nose pain Sinus congestion Closed head injury, initial encounter MDM / Disposition / Plan Patient is a 27-year-old female who presents today with nose pain. Patient states that 3 days ago she was hit in the nose by her dog. She has had pain and swelling to the nose since then. She feels sinus pressure and fullness. She also has mild intermittent headaches. On exam, patient is awake and alert. Vital signs are stable, patient is afebrile, no tachycardia or hypoxia. Patient has no focal neurologic deficits. Patient has tenderness to the nasal bridge. No nasal deformity or swelling appreciated. No ecchymosis. No septal hematoma. No epistaxis. CT of the facial bones was obtained and showed no evidence of an acute facial bone fracture. I discussed the x-ray results with the patient. Recommend conservative management at this time with rest, ice, Tylenol and ibuprofen as needed for pain. At this point there is no obvious deformity or septal hematoma. Patient was given ENT follow-up information, recommend follow-up in 1 week if her symptoms or not improving. Advised her to return to the emergency department if she develops worsening pain or swelling. Patient was agreeable with the plan of care and was discharged in stable condition. Differential Diagnoses - Septal hematoma is less likely for the following reason(s): No evidence on physical exam - Nasal bone fracture is less likely for the following reason(s): no evidence on imaging Management Radiology Reports CT FACIAL BONE/DIVYA WO IVCON Final Result IMPRESSION: No evidence of acute facial bone fracture. Specifically, no evidence of nasal bone fracture. Cane Flume Chute Operator: GRETEL Transcribe Date/Time: Oct 21 2022 6:24P Dictated by : FARIBA CROOK MD This examination was interpreted and the report reviewed and electronically signed by: FARIBA CROOK MD on Oct 21 2022 6:27PM EST Disposition The patient was discharged. Counseled patient regarding radiology results. SIGNATURE: Rylie Christensen PA-C Message to PCP: SPECIALIST FOLLOW UP: Follow-up with ENT in 1 week if symptoms or not improving RYLIE CHRISTENSEN 10/21/22 191 [facility] Urineon 10-05-2022 Bacteria identified Cx Nom (U) Microbiology PROCEDURE: Urine Culture [R1] SOURCE: U Random BODY SITE: COLLECTED DATE/TIME: 10/02/2022 13:42 EDT RECEIVED DATE/TIME: 10/03/2022 11:29 EDT START DATE/TIME: 10/03/2022 11:29 EDT FREE TEXT SOURCE: Cory Daly PA-C. Addy MOREIRA, Cory Ahuja. FINAL REPORTS Final Report [] Verified Date/Time: 10/05/2022 10:59 EDT 1,000 cfu/ml Mixed skin contaminants Performing Locations R1: This test was performed at: [facility], [address] [place] [address], [id number], [facility] Comment on above: Performed By: #### 2 [id number] #### [facility] [address] [place] [address] Chlam/GC/Trich,NAAon 023 C. trachomatis rRNA PJ+probe Ql (Unsp spec) Negative Invalid Interpretation Code Negative [facility] Comment on above: Performed By: #### 3 [id number] #### [facility] [address] [place] [address] N. gonorrhoeae rRNA PJ+probe Ql (Unsp spec) Negative Invalid Interpretation Code Negative [facility] Comment on above: Performed By: #### 3 [id number] #### [facility] [address] [place] [id number] T. vaginalis rRNA PJ+probe Ql (Unsp spec) Negative Invalid Interpretation Code Negative [facility] Comment on above: Result Comment: Perf ormed at: =G [facility] [address] [id number] MD Shamar Hobson Performed By: #### 3 [id number] #### [facility] [address] [place] [address] Vaginitis/Vaginosis, DNA Pro beon 10-05-2022 Celine sp rRNA Probe Ql (Vag fld) Negative Invalid Interpretation Code Negative [facility] Comment on above: Performed By: #### 3 [id number] #### [facility] [address] [place] [address] G. vaginalis rRNA Probe Ql (Genital specimen) Negative Invalid Interpretation Code Negative [facility] Comment on above: Performed By: #### 3 [id number] #### [facility] [address] [place] [id number] T. vaginalis rRNA Probe Ql (Genital specimen) Negative Invalid Interpretation Code Negative [facility] Comment on above: Result Comment: Perf ormed at: CB [facility] [address] [id number] PhD Hanane Rodriguez Performed By: #### 3 [id number], [id number] #### [facility] [address] [id number] Family Medicine Office/Clini c Noteon 10-02-2022 Family Medicine Office/Clinic Note Chief Complaint EST UTI/STD/BV HPI Staff Pt 27 yo female presents with UTI/STD testing Onset- 3 wks ago Frequency- yes but drinking more water Urgency- no Small volume void- no Dysuria- no Pressure- no Back pain- no Nocturia- no Fever/chills- no Nausea/vomiting- no UTI or other reason for antbx's last 30 days- 3 wks ago- Presents today for evaluation of possible STD exposure Symptom onset: 1 wk New sexual partner: no partner was cheating at the end Discharge: yes- Monday yellowish discharge- thinks maybe BV Sores/bumps: no Dysuria: no Foul smelling urine: no Treatments attempted: monistat History of Present Illness I have reviewed and verified the staff HPI to be accurate for this encounter. Portions of this record have been created with voice recognition software. Occasional wrong-word or ?bmgdk-q-[id number]? substitutions may have occurred due to the inherent limitations of voice recognition software. 27-year-old female presents today with chief complaint of possible STD exposure and UTI. Patient states 3 weeks ago she had a UTI and was treated. She states she wants to make sure her urine is clean today. She denies any UTI symptoms. She states on Monday she noticed some yellow type discharge she thinks she could have bacterial vaginosis? She states that her sexual partner was cheating at the end of the relationship so she wants to be tested for STI. She is unsure if she has a UTI but denies any urinary urgency frequency burning with urination or lower pelvic pain or pressure. States she has had multiple LEEP procedures due to previous cervical cancer cells. She denies any chance, or concern for . LMP x 3 months ago, has every 3 month control. Review of Systems PHQ Score Initial Depression Screen Score: 0 Physical Exam Vitals & Measurements T: 36.9 ?C(Oral) HR: 68(Peripheral) BP: 116/74 SpO2: 99% HT: 65 in HT: 164 cm WT: 48.4 kg WT: 106.48 lb BMI: 18 General: Well developed, well nourished, in no acute distress Eyes: not assessed Ears: not assessed Nose: not addressed Mouth: not assessed Neck: not assessed Lungs: clear to auscultation throughout, no wheezing, no rales. No respiratory distress Cardio: regular rate and rhythm, no murmur Abdomen: soft, nondistended, BS normal and active x4. Denies tenderness. No guarding or grimacing Musculoskeletal: not assessed Extremity: not assessed Neurologic: not assessed Skin: No rashes, ulcerations, or suspicious lesions Mental Status: Alert and oriented x3. Normal mood and affect Assessment/Plan 1. High risk sexual behavior (Z72.51: High risk heterosexual behavior) Patient urinalysis completed today in regards to making sure that she no longer had a UTI. Urine is negative. Discussed with the patient in regards to pelvic exam versus self swabbing which patient preferred self swabbing we will send swab off to rule out chlamydia gonorrhea trichomonas in addition to a second swab to rule out bacterial vaginosis or yeast. Patient will continue to monitor her symptoms if for any reason any of these would come back positive she will be notified and treated. Patient is understanding and in agreement. Ordered: Chlam/GC/Trich,PJ Vaginitis/Vaginosis, DNA Probe Follow-up With When Contact Information Hernan ARMAS DO, [facility] [address] [place] [address]- Additional Instructions: Patient Education Safe Sex Problem List/Past Medical History Ongoing Asthma Cyclic vomiting syndrome Digestive disorder Generalized anxiety disorder Hair loss Heavy periods HSIL (high grade squamous intraepithelial lesion) on Pap smear of cervix Hypermobility of joint Posttraumatic stress disorder Historical No qualifying data Procedure/Surgical History Excision of tonsil (2012), Colonoscopy (2011). Medications hydrOXYzine hydrochloride 10 mg Tab, 20 mg= 2 tab(s), Oral, BID, PRN, 1 refills Sprintec oral tablet, 1 tab(s), Oral, Daily, 1 refills tiZANidine 4 mg Tab, 4 mg= 1 tab(s), Oral, q8hr, 1 refills traZODONE 50 mg Tab, 50 mg= 1 tab(s), Oral, Once a day (at bedtime), 1 refills Zofran ODT 4 mg Tab-Dis, 4 mg= 1 tab(s), Oral, q8hr, PRN, 1 refills Allergies Liane-Q (Muscle atrophy) doxycycline (rash) penicillins (rash) Social History Alcohol 1-2 times per week, 10/17/2018 Substance Abuse Tobacco - High Risk, 02/08/2021 10 or more cigarettes (1/2 pack or more)/day in last 30 days Tobacco Use:. Never Smokeless Tobacco Use:. Cigarettes, Ready to change: Yes. Household tobacco concerns: No. Yes, 10/02/2022 Family History Family history is negative Immunizations Vaccine Date Status Comments SARS-CoV-2 (COVID-19) Ad26 vaccine 08/01/2020 Recorded 2022-10-02: TPVALL influenza virus vaccine, inactivated - Not Given Patient Refuses diphtheria/pertussis, acel/tetanus adult 12/07/2017 Recorded measles/mumps/rubella virus vaccine 12/05/2001 Recorded poliovirus vaccine, inactivated (more content not included)... Normal [facility] Comment on above: Result Comment: Elec tronically Signed By: Addy MOREIRA, Cory Russ\.br\Date and Time Signed: 10/02/22 12:48 EDT Patient Educationon 10-03-19 Patient Education Obstetrics and Gynecology Safe Sex Practicing safe sex means taking steps before and during sex to reduce your risk of: ? Getting an STI (sexually transmitted infection). ? Giving your partner an STI. ? Unwanted or unplanned . How to practice safe sex Ways you can practice safe sex ? Limit your sexual partners to only one partner who is having sex with only you. ? Avoid using alcohol and drugs before having sex. Alcohol and drugs can affect your judgment. ? Before having sex with a new partner: ? Talk to your partner about past partners, past STIs, and drug use. ? Get screened for STIs and discuss the results with your partner. Ask your partner to get screened too. ? Check your body regularly for sores, blisters, rashes, or unusual discharge. If you notice any of these problems, visit your health care provider. ? Avoid sexual contact if you have symptoms of an infection or you are being treated for an STI. ? While having sex, use a condom. Make sure to: ? Use a condom every time you have vaginal, oral, or anal sex. Both females and males should wear condoms during oral sex. ? Keep condoms in place from the beginning to the end of sexual activity. ? Use a latex condom, if possible. Latex condoms offer the best protection. ? Use only water-based lubricants with a condom. Using petroleum-based lubricants or oils will weaken the condom and increase the chance that it will break. Ways your health care provider can help you practice safe sex ? See your health care provider for regular screenings, exams, and tests for STIs. ? Talk with your health care provider about what kind of control (contraception) is best for you. ? Get vaccinated against hepatitis B and human papillomavirus (HPV). ? If you are at risk of being infected with HIV (human immunodeficiency virus), talk with your health care provider about taking a prescription medicine to prevent HIV infection. You are at risk for HIV if you: ? Are a man who has sex with other men. ? Are sexually active with more than one partner. ? Take drugs by injection. ? Have a sex partner who has HIV. ? Have unprotected sex. ? Have sex with someone who has sex with both men and women. ? Have had an STI. Follow these instructions at home: ? Take wchk-pry-efuwdsf and prescription medicines only as told by your health care provider. ? Keep all follow-up visits. This is important. Where to find more information ? Centers for Disease Control and Prevention: www.cdc.gov ? Planned Parenthood: www.plannedparenthood .org ? Office on Women's Health: www.womenshealth.gov Summary ? Practicing safe sex means taking steps before and during sex to reduce your risk getting an STI, giving your partner an STI, and having an unwanted or unplanned . ? Before having sex with a new partner, talk to your partner about past partners, past STIs, and drug use. ? Use a condom every time you have vaginal, oral, or anal sex. Both females and males should wear condoms during oral sex. ? Check your body regularly for sores, blisters, rashes, or unusual discharge. If you notice any of these problems, visit your health care provider. ? See your health care provider for regular screenings, exams, and tests for STIs. This information is not intended to replace advice given to you by your health care provider. Make sure you discuss any questions you have with your health care provider. Document Revised: 09/21/2020 Document Reviewed: 09/21/2020 Elsevier Patient Education ? 2022 [employer] Normal [facility] PAP ACOG PANEL 2: 21 to 29on 07-22-2022 . . Normal [facility] Comment on above: Performed By: #### [id number] #### [facility] [address] [address] [address] Mariely Alatorre Age Gdln ACOG Testing - Normal [facility] Comment on above: Performed By: #### [id number] #### [facility] [address] [address] [address] Mariely Alatorre DIAGNOSIS: Comment Abnormal [facility] Comment on above: Result Comment: EPIT HELIAL CELL ABNORMALITY. ATYPICAL SQUAMOUS CELLS OF UNDETERMINED SIGNIFICANCE (ASC-US). Performed By: #### 4 [id number] #### [facility] [address] [place] [address] Dr. Mariely Alatorre Electronically signed by: Comment Normal [facility] Comment on above: Result Comment: Irene Ibanez MD, Pathologist Performed By: #### 4 [id number] #### [facility] [address] [address] [address] Mariely Alatorre HPV Aptima Negative Normal Negative [facility] Comment on above: Result Comment: This nucleic acid amplification test detects fourteen high-risk HPV types (16,18,31,33,35,39,45,51,52,56,58,59,66,68) without differentiation. Performed By: #### 4 [id number] #### [facility] [address] [address] [address] Mariely Alatorre Methodology: Comment Normal [facility] Comment on above: Result Comment: This liquid based ThinPrep(R) pap test was screened with the use of an image guided system. Performed By: #### 4 [id number] #### [facility] [address] [place] [address] Dr. Mariely Alatorre Note: Comment Normal [facility] Comment on above: Result Comment: The Pap smear is a screening test designed to aid in the detection of premalignant and malignant conditions of the uterine cervix. It is not a diagnostic procedure and should not be used as the sole means of detecting cervical cancer. Both false-positive and false-negative reports do occur. . Performed By: #### 4 [id number] #### [facility] [address] [place] [address] Dr. Mariely Alatorre Pathologist Provided ICD10 Comment Normal [facility] Comment on above: Result Comment: R87. 610 Performed By: #### 4 [id number] #### [facility] [address] [place] [address] Dr. Mariely Alatorre Performed by: Comment Normal [facility] Comment on above: Result Comment: [employer] Professional (ASCP) Performed By: #### 4 [id number] #### [facility] [address] [place] [address] Dr. Mariely Alatorre Recommendation: Comment Abnormal [facility] Comment on above: Result Comment: Sugg est follow up as clinically appropriate. Performed By: #### 4 [id number] #### [facility] [address] [place] [address] Dr. Mariely Alatorre Reflex Criteria: Comment Normal [facility] Comment on above: Result Comment: See below for HPV testing results. . Performed By: #### 4 [id number] #### [facility] [address] [place] [address] Dr. Mariely Alatorre Specimen adequacy: Comment Normal [facility] Comment on above: Result Comment: Sati sfactory for evaluation. Endocervical and/or squamous metaplastic cells (endocervical component) are present. Performed By: #### 4 [id number] #### [facility] [address] [place] [address] Dr. Mariely Alatorre CBC AUTO DIFFon 01-14-2022 BASO # 0.1 103/ul Normal 0.0-0.1 [facility] Comment on above: Performed By: #### C BC #### [facility] [address] [place] [address] Dr. Mariely Alatorre Basophils/100 WBC (Bld) 0.9 % Normal 0.2-2.0 [facility] Comment on above: Performed By: #### C BC #### [facility] [address] [address] [address] Mariely Alatorre EO # 0.3 103/ul Normal 0.0-0.7 [facility] Comment on above: Performed By: #### C BC #### [facility] [address] [place] [address] Dr. Mariely Alatorre Eosinophils/100 WBC (Bld) 4.1 % Normal 0.9-7.0 [facility] Comment on above: Performed By: #### C BC #### [facility] [address] [place] [address] Dr. Mariely Alatorre Erythrocyte distribution width (RBC) [Ratio] 12.0 % Normal 11.0-15.0 [facility] Comment on above: Performed By: #### C BC #### [facility] [address] [place] [address] Dr. Mariely Alatorre Hematocrit (Bld) [Volume fraction] 41.8 % Normal 36.0-48.0 [facility] Comment on above: Performed By: #### C BC #### [facility] [address] [place] [address] Dr. Mariely Alatorre Hemoglobin (Bld) [Mass/Vol] 14.0 g/dL Normal 12.0-16.0 [facility] Comment on above: Performed By: #### C BC #### [facility] [address] [place] [address] Dr. Mariely Alatorre IG # 0.01 10e3/ul Normal 0.00-0.03 [facility] Comment on above: Performed By: #### C BC #### [facility] [address] [place] [address] Dr. Mariely Alatorre IG % 0.2 % Normal 0.0-0.5 [facility] Comment on above: Performed By: #### C BC #### [facility] [address] [place] [address] Dr. Mariely Alatorre LYMPH # 3.1 103/ul Normal 1.2-3.8 [facility] Comment on above: Performed By: #### C BC #### [facility] [address] [place] [address] Dr. Mariely Alatorre Lymphocytes/100 WBC (Bld) 47.9 % Normal 20.5-60.0 [facility] Comment on above: Performed By: #### C BC #### [facility] [address] [place] [address] Dr. Mariely Alatorre MANUAL DIFF REQ NO Normal [facility] Comment on above: Performed By: #### C BC #### [facility] [address] [place] [address] Dr. Mariely Alatorre MCH (RBC) [Entitic mass] 30.6 pg Normal 26.7-34.0 [facility] Comment on above: Performed By: #### C BC #### [facility] [address] [place] [address] Dr. Mariely Alatorre MCHC (RBC) [Mass/Vol] 33.5 g/dL Normal 29.9-35.2 [facility] Comment on above: Performed By: #### C BC #### [facility] [address] [place] [address] Dr. Mariely Alatorre MCV (RBC) [Entitic vol] 91.5 fL Normal 81.0-99.0 [facility] Comment on above: Performed By: #### C BC #### [facility] [address] [place] [address] Dr. Mariely Alatorre MONO # 0.5 103/ul Normal 0.3-0.8 [facility] Comment on above: Performed By: #### C BC #### [facility] [address] [place] [address] Dr. Mariely Alatorre Monocytes/100 WBC (Bld) 7.2 % Normal 1.7-12.0 [facility] Comment on above: Performed By: #### C BC #### [facility] [address] [place] [address] Dr. Mariely Alatorre NEUT # 2.5 103/ul Normal 1.4-6.5 [facility] Comment on above: Performed By: #### C BC #### [facility] [address] [place] [address] Dr. Mariely Alatorre Neutrophils/100 WBC (Bld) 39.7 % Critically low 43.0-75.0 [facility] Comment on above: Performed By: #### C BC #### [facility] [address] [place] [address] Dr. Mariely Alatorre Platelet mean volume (Bld) [Entitic vol] 9.5 fL Normal 9.5-13.5 [facility] Comment on above: Performed By: #### C BC #### [facility] [address] [place] [address] Dr. Mariely Alatorre PLT 207 103/ul Normal 150-450 [facility] Comment on above: Performed By: #### C BC #### [facility] [address] [place] [address] Dr. Mariely Alatorre RBC 4.57 106/ul Normal 4.20-5.40 [facility] Comment on above: Performed By: #### C BC #### [facility] [address] [place] [address] Dr. Mariely Alatorre WBC 6.4 103/ul Normal 4.0-11.0 [facility] Comment on above: Performed By: #### C BC #### [facility] [address] [place] [address] Dr. Mariely Alatorre PREG HCG QUALon 01-14-2022 , QUAL Negative Normal NEGATIVE [facility] Comment on above: Performed By: #### P REG #### [facility] [address] [place] [address] Dr. Mariely Alatorre Covid-19 PCR (CVDTBH)on 12-30 SARS-CoV-2 (COVID-19) RNA PJ+probe Ql (Unsp spec) Not detected Normal NOT DETECTED [facility] Comment on above: Result Comment: This test is not yet approved or cleared by the [place] FDA. When there are no FDA-approved or cleared tests available, and other criteria are met, FDA can make tests available under an emergency access mechanism called an Emergency Use Authorization (EUA). The EUA for this test is supported by the [place] of Health and Human Service's (HHS's) declaration that circumstances exist to justify the emergency use of in vitro diagnostics for the detection and/or diagnosis of the virus that causes COVID-19. This EUA will remain in effect (meaning this test can be used) for the duration of the COVID-19 declaration justifying emergency of IVDs, unless it is terminated or revoked by FDA (after which the test may no longer be used). When diagnostic testing is negative, the possibility of a false negative should be considered in the context of a patient's recent exposures and the presence of clinical signs and symptoms consistent with SARS-CoV-2. Performed By: #### [facility] #### [facility] [address] [place] [address] Dr. Mariely Alatorre [facility] 11-09-2021 [facility] HNO ID: [id number] Author: RT Akila(R) Service: Radiology Author Type: Technologist Type: Allied Health Filed: 11/09/2021 2:54 PM Note Text: Radiology Service Progress Note PATIENT NAME: Maddy Hugo DATE OF SERVICE: November 09, 2021 TIME: 2:54 PM PATIENT IDENTITY VERIFICATION COMPLETED USING TWO (2) IDENTIFIERS: Name and Date of confirmed by patient verbally. FALL SCREENING: Has the patient had 2 falls in the last year or 1 fall with injury or currently using an Ambulatory Assistive Device (Walker, Cane, Wheelchair, Crutches, etc.)? No PATIENT GENDER DATA: Female. status: : No status: NO. PATIENT RELEVANT IMPLANT DATA REVIEWED: Not Applicable RADIOLOGY DEPARTMENT: CT; Exam(s) Completed: Abdomen/Pelvis PERIPHERAL IV DATA: Not applicable SIGNED BY: RT Akila(R) November 09, 2021 2:54 PM Normal [facility] CBC panel Auto (Bld)on 11-09 Erythrocyte distribution width (RBC) [Ratio] 11.9 % Normal 11.5-15.0 [facility] Comment on above: Order Comment: Speci men Type: BLOOD SPECIMEN Ordering Facility: [facility] Address: [address] [place] [id number] Performed By: #### 5 8410-2 #### [facility] CLIA [id number] [address] Hematocrit (Bld) [Volume fraction] 41.3 % Normal 36.0-46.0 [facility] Comment on above: Order Comment: Speci men Type: BLOOD SPECIMEN Ordering Facility: [facility] Address: [address] [place] [address] Performed By: #### 5 8410-2 #### [facility] CLIA [id number] [address] [facility] Hemoglobin (Bld) [Mass/Vol] 14.3 g/dL Normal 11.5-15.5 [facility] Comment on above: Order Comment: Speci men Type: BLOOD SPECIMEN Ordering Facility: [facility] Address: [address] [place] [address] Performed By: #### 5 8410-2 #### [facility] CLIA [id number] [address] MCH (RBC) [Entitic mass] 30.6 pg Normal 26.0-34.0 [facility] Comment on above: Order Comment: Speci men Type: BLOOD SPECIMEN Ordering Facility: [facility] Address: [address] [place] [address] Performed By: #### 5 8410-2 #### [facility] CLIA [id number] [address] [facility] MCHC (RBC) [Mass/Vol] 34.6 g/dL Normal 30.5-36.0 [facility] Comment on above: Order Comment: Speci men Type: BLOOD SPECIMEN Ordering Facility: [facility] Address: [address] [place] [address] Performed By: #### 5 8410-2 #### [facility] CLIA [id number] [address] MCV (RBC) [Entitic vol] 88.2 fL Normal 80.0-100.0 [facility] Comment on above: Order Comment: Speci men Type: BLOOD SPECIMEN Ordering Facility: [facility] Address: [address] [address] Performed By: #### 5 8410-2 #### [facility] CLIA [id number] [address] Nucleated RBC (Bld) [#/Vol] 10*3/uL Normal <0.01 [facility] Comment on above: Order Comment: Speci men Type: BLOOD SPECIMEN Ordering Facility: [facility] Address: [address] [address] Performed By: #### 5 8410-2 #### [facility] CLIA [id number] [address] Platelet mean volume (Bld) [Entitic vol] 10.5 fL Normal 9.0-12.7 [facility] Comment on above: Order Comment: Speci men Type: BLOOD SPECIMEN Ordering Facility: [facility] Address: [address] [address] Performed By: #### 5 8410-2 #### [facility] CLIA [id number] [address] Platelets (Bld) [#/Vol] 206 10*3/uL Normal 150-400 [facility] Comment on above: Order Comment: Speci men Type: BLOOD SPECIMEN Ordering Facility: [facility] Address: [address] [address] Performed By: #### 5 8410-2 #### [facility] CLIA [id number] [address] [place] RBC (Bld) [#/Vol] 4.68 10*6/uL Normal 3.90-5.20 [facility] Comment on above: Order Comment: Speci men Type: BLOOD SPECIMEN Ordering Facility: [facility] Address: [address] [address] Performed By: #### 5 8410-2 #### [facility] CLIA [id number] [address] [place] WBC (Bld) [#/Vol] 5.30 10*3/uL Normal 3.70-11.00 [facility] Comment on above: Order Comment: Speci men Type: BLOOD SPECIMEN Ordering Facility: [facility] Address: [address] [place] [address] Performed By: #### 5 8410-2 #### [facility] CLIA [id number] [address] ABD/PEL WO IVCONon 2021 CT ABD/PEL WO IVCON * * *Final Report* * * DATE OF EXAM: Nov 09 2021 2:55PM [facility] 0531 - CT ABD/PEL WO IVCON / PROCEDURE REASON: multiple diagnoses * * * * Physician Interpretation * * * * EXAMINATION: CT ABDOMEN AND PELVIS WITHOUT IV CONTRAST CLINICAL HISTORY: Nausea and vomiting, unspecified vomiting type. Weight loss TECHNIQUE: Non-IV contrast imaging of the abdomen and pelvis was performed using standard technique, scanning from just above the dome of the diaphragm to the symphysis pubis. Unenhanced imaging is limited for the evaluation of some intra-abdominal and pelvic pathology. MQ: CTAPWO_3 Contrast: IV: None Oral: 900 ml of 50ML Omnipaque [address] Radiation dose: Integrated Dose-length product (DLP) for this visit = 132 mGy*cm. CT Dose Reduction Employed: mAs-kVp adjusted based on patient size-age COMPARISON: None. RESULT: Abdomen / Pelvis: Liver: Unremarkable. Biliary: No calcified gallstones Spleen: No splenomegaly. Pancreas: Unremarkable. Adrenals: No mass. Kidneys: No calculus, hydronephrosis or finding to suggest a cyst or mass in the unenhanced kidney. GI Tract: No bowel dilation. Lymph Nodes: No lymphadenopathy. Mesentery/peritoneum: No ascites. Retroperitoneum: No mass. Vasculature: Normal caliber abdominal aorta Pelvis: No mass or ascites. Bones/Soft Tissues: No acute abnormality. Lower thorax: Unremarkable. Window Shade Estimator (topogram) images: No additional findings. IMPRESSION: Unremarkable CT. No findings to explain the patient's symptoms. Cane Flume Chute Operator: GRETEL Transcribe Date/Time: Nov 13 2021 9:38A Dictated by : VU WELCH MD This examination was interpreted and the report reviewed and electronically signed by: VU WELCH MD on Nov 13 2021 9:43AM EST [id number] N Normal [facility] Comprehensive metabolic 2000 panelon 11-09-2021 Albumin [Mass/Vol] 4.7 g/dL Normal 3.9-4.9 [facility] Comment on above: Order Comment: Speci men Type: BLOOD SPECIMEN Ordering Facility: [facility] Address: [address] [place] [address] Performed By: #### 2 8, 2142-09 #### [facility] CLIA [id number] [address] ALP [Catalytic activity/Vol] 57 U/L Normal 34-123 [facility] Comment on above: Order Comment: Speci men Type: BLOOD SPECIMEN Ordering Facility: [facility] Address: [address] [place] [address] Performed By: #### 2 4322-11, 2142-09 #### [facility] CLIA [id number] [address] ALT With P-5'-P [Catalytic activity/Vol] 13 U/L Normal 7-38 [facility] Comment on above: Order Comment: Speci men Type: BLOOD SPECIMEN Ordering Facility: [facility] Address: [address] [place] [address] Performed By: #### 2 4322-11, 2142-09 #### [facility] CLIA [id number] [address] Anion gap [Moles/Vol] 12 mmol/L Normal 9-18 [facility] Comment on above: Order Comment: Speci men Type: BLOOD SPECIMEN Ordering Facility: [facility] Address: [address] [place] [address] Performed By: #### 2 4328, 2142-09 #### [facility] CLIA [id number] [address] AST With P-5'-P [Catalytic activity/Vol] 17 U/L Normal 13-35 [facility] Comment on above: Order Comment: Speci men Type: BLOOD SPECIMEN Ordering Facility: [facility] Address: [address] [place] [address] Performed By: #### 2 432-8, 2142-09 #### [facility] CLIA [id number] [address] [place] Bilirubin [Mass/Vol] 0.5 mg/dL Normal 0.2-1.3 [facility] Comment on above: Order Comment: Speci men Type: BLOOD SPECIMEN Ordering Facility: [facility] Address: [address] [place] [address] Performed By: #### 2 8, 2142-09 #### [facility] CLIA [id number] [address] [place] Calcium [Mass/Vol] 9.6 mg/dL Normal 8.5-10.2 [facility] Comment on above: Order Comment: Speci men Type: BLOOD SPECIMEN Ordering Facility: [facility] Address: [address] [place] [address] Performed By: #### 2 4322-11, 2142-09 #### [facility] CLIA [id number] [address] [place] Chloride [Moles/Vol] 104 mmol/L Normal 97-105 [facility] Comment on above: Order Comment: Speci men Type: BLOOD SPECIMEN Ordering Facility: [facility] Address: [address] [place] [address] Performed By: #### 2 8, 2142-09 #### [facility] CLIA [id number] [address] [place] [address] [place] CO2 [Moles/Vol] 24 mmol/L Normal 22-30 [facility] Comment on above: Order Comment: Speci men Type: BLOOD SPECIMEN Ordering Facility: [facility] Address: [address] [place] [address] Performed By: #### 2 4323-8, 2142-09 #### [facility] CLIA [id number] [address] [place] Creatinine [Mass/Vol] 0.88 mg/dL Normal 0.58-0.96 [facility] Comment on above: Order Comment: Moses harmon Type: BLOOD SPECIMEN Ordering Facility: [facility] Address: [address] [place] [address] Performed By: #### 2 43238, 2142-09 #### [facility] CLIA [id number] [address] OF [facility] ESTIMATED GLOMERULAR FILTRATION RATE 94 mL/min/1.73m??? Normal >=60 [facility] Comment on above: Order Comment: Moses harmon Type: BLOOD SPECIMEN Ordering Facility: [facility] Address: [address] [place] [address] Result Comment: Yana mated Glomerular Filtration Rate (eGFR) is calculated using the 2020 CKD-EPI creatinine equation. This equation utilizes serum creatinine, sex, and age as parameters. The creatinine assay has traceable calibration to isotope dilution-mass spectrometry. Refer to KDIGO guidelines for clinical interpretation. In patients with unstable renal function, e.g. those with acute kidney injury, the eGFR may not accurately reflect actual GFR. Performed By: #### 2 4323-8, 2142-09 #### [facility] CLIA [id number] [address] [place] Glucose [Mass/Vol] 77 mg/dL Normal 74-99 [facility] Comment on above: Order Comment: Moses hramon Type: BLOOD SPECIMEN Ordering Facility: [facility] Address: [address] [place] [address] Result Comment: The [place] Diabetes Association (ADA) provides guidance for cutoff values for fasting glucose and random glucose. The ADA defines fasting as no caloric intake for at least 8 hours. Fasting plasma glucose results between 100 to 125 mg/dL indicate increased risk for diabetes (prediabetes). Fasting plasma glucose results greater than or equal to 126 mg/dL meet the criteria for diagnosis of diabetes. In the absence of unequivocal hyperglycemia, results should be confirmed by repeat testing. In a patient with classic symptoms of hyperglycemia or hyperglycemic crisis, random plasma glucose results greater than or equal to 200 mg/dL meet the criteria for diagnosis of diabetes. Reference: Standards of Medical Care in Diabetes 2016, [place] [employer] Association. Diabetes Care. 2016.39(Suppl 1). Performed By: #### 2 8, 2142-09 #### [facility] CLIA [id number] [address] [place] [address] [place] Potassium [Moles/Vol] 4.2 mmol/L Normal 3.7-5.1 [facility] Comment on above: Order Comment: Speci men Type: BLOOD SPECIMEN Ordering Facility: [facility] Address: [address] [place] [address] Performed By: #### 2 4322-11, 2142-09 #### [facility] CLIA [id number] [address] [place] Protein [Mass/Vol] 6.6 g/dL Normal 6.3-8.0 [facility] Comment on above: Order Comment: Speci men Type: BLOOD SPECIMEN Ordering Facility: [facility] Address: [address] [place] [address] Performed By: #### 2 4322-11, 2142-09 #### [facility] CLIA [id number] [address] [place] Sodium [Moles/Vol] 140 mmol/L Normal 136-144 [facility] Comment on above: Order Comment: Speci men Type: BLOOD SPECIMEN Ordering Facility: [facility] Address: [address] [place] [place] [address] Performed By: #### 2 4322-11, 2142-09 #### [facility] CLIA [id number] [address] [place] Urea nitrogen [Mass/Vol] 10 mg/dL Normal 7-21 [facility] Comment on above: Order Comment: Speci men Type: BLOOD SPECIMEN Ordering Facility: [facility] Address: [address] [place] [place] [address] Performed By: #### 2 4323-8, 2143-6 #### [facility] CLIA [id number] [address] [place] [id number] [facility] Jerardo ChristiansonBrandyrashida 11-10-19 Cortisol [Mass/Vol] 11.7 ug/dL Normal AM: 5.3- 22.5, PM: 3.4-16.8 [facility] Comment on above: Order Comment: Speci men Type: BLOOD SPECIMEN Ordering Facility: [facility] Address: [address] [place] [address] Result Comment: Prov ided reference range is from 6-10 AM sample collection time. Cortisol Reference Range: 6-10 AM = 4.8-19.5 ug/dL, 4-8 PM = 2.5-11.9 ug/dL Performed By: #### 2 4323-8, 2143-6 #### [facility] CLIA [id number] [address] Shahram 11-05-2021 CNPN Telephone (AGGASTACC ) MADDY HUGO ([id number]) 1995 F Date Time Provider Department 11/05/21 BRUNO GAMBINO AGGASTACC During your visit today, we recorded the following information about you: Bruno Gambino MD 11/05/2021 1:44 PM Signed Just checking. I received some records from [facility] re: cervical bxs and dysplasia. Does she know about this? Has she had COMMUNITY SERVICE MANAGER f/up? If not she should. Lobo Hardwick MA 11/05/2021 3:38 PM Signed Yes pt is aware and following with Obgyn Lobo Hardwick MA Allergies As of Date: 11/05/2021 Noted Allergy Reaction DOXYCYCLINE 10/21/2021 11 - Vomiting PENICILLINS 04/06/2012 16 - Unknown Date Reviewed: 10/21/2021 Reviewed by: Bruno Gambino MD - Fully Assessed Reason for Visit: Results [95] Prescriptions as of 11/05/2021 - norgestimate 0.25 mg-ethinyl estradiol 35 mcg (SPRINTEC, ORTHO-CYCLEN) 0.25-35 mg-mcg per tablet Take 1 tablet by mouth once daily. - ondansetron (ZOFRAN) 4 mg tablet Take 4 mg by mouth every 8 hours as needed for nausea/vomiting. - ALBUTEROL INHALATION Inhale as instructed as needed. Problem List As Of Date: 11/05/2021 (None) Encounter Status:Closed by LOBO HARDWICK on 11/05/21 [facility] CNOVon 10-21-2021 CNOV Office Visit (AGGASTN) MADDY HUGO ([id number]) 1995 F Date Time Provider Department 10/21/21 2:15 PM BRUNO GAMBINO During your visit today, we recorded the following information about you: Pulse Blood pressure Weight Height 90/minute 112/81 45.4 kg 1.626 m Bruno Gambino MD 10/21/2021 3:12 PM Signed HPI: Castañedafidencio Hugo is a 26 year old female who presents for Nausea AND Vomiting. Pt is here for a hx of above sxs. She has seen mult Drs. Including GI specialist(s). Mult tests done including EGD and colonoscopies. Was told she had diverticular dz. Was dx'd w cyclical vomiting syndrome. Can be 3ds to 2 wk intervals and may go a few wks to 8 wks between episodes. Has tried gluten free and lactose free diets w/o much help. Has had sxs that began at age 19. Has some pain can be epig pain and lower pain as well, comes and goes. Has tried PPI, incomplete relief. Denies htburn regurgitation, but belches air a lot. No dysphagia, 15# wt loss and says she struggles to keep wt on. Has nl b habits and goes about 3-4 BM's per week, denies diarrhea, constipation, no bleeding. Last endoscopies were done 2018. GES was nl in the past. May have US's done as a teenager but not clear which area. Sxs not worse or necessarily come on after po. Min ETOH use, does admit to marijuana use about 3-4 ds of the week. Pt did try going off for > 1 yr and did not make a difference per pt. Denies hx of eating d/o, binge/purge behavior Current Outpatient Medications Medication Sig - norgestimate 0.25 mg-ethinyl estradiol 35 mcg (SPRINTEC, ORTHO-CYCLEN) 0.25-35 mg-mcg per tablet Take 1 tablet by mouth once daily. - ondansetron (ZOFRAN) 4 mg tablet Take 4 mg by mouth every 8 hours as needed for nausea/vomiting. - ALBUTEROL INHALATION Inhale as instructed as needed. No current facility-administered medications for this visit. PAST MEDICAL HISTORY Diagnosis Date - Tonsillitis allergies, ovarian cyst PAST SURGICAL HISTORY Procedure Laterality Date - COLONOSCOPY - EGD FAMILY HISTORY Problem Relation Age of Onset - None Unknown Social History Tobacco Use - Smoking status: Current Every Day Smoker Types: Cigarettes - Smokeless tobacco: Never Used Substance Use Topics - Alcohol use: No - Drug use: Not on file ALLERGIES Allergen Reactions - Doxycycline Vomiting - Penicillins Unknown REVIEW OF SYSTEMS GENERAL: No weight loss, malaise or fevers. HEENT: Negative for frequent or significant headaches, No changes in hearing or vision, no nose bleeds or other nasal problems. NECK: Negative for lumps, goiter, pain and significant neck swelling. RESPIRATORY: Negative for cough, hemoptysis, wheezing or shortness of breath CARDIOVASCULAR: Negative for chest pain, leg swelling or palpitations GI: See HPI : No history of dysuria, frequency or incontinence MUSCULOSKELETAL: Negative for joint pain or swelling, back pain or muscle pain. SKIN: Negative for lesions, rash, and itching PSYCH: Negative for sleep disturbance, mood disorder and recent psychosocial stressors NEURO: No history of headaches, syncope, paralysis, seizures or tremors PHYSICAL EXAMINATION: BP 112/81 Pulse 90 Ht 5' 4 (1.63m) Wt 100 lb (45.4kg) BMI 17.16 kg/(m2). GENERAL APPEARANCE: Well appearing, alert, in no acute distress, well-hydrated, well nourished.. SKIN: Skin color, texture, turgor normal, no suspicious rashes or lesions. EYES: Anicteric sclera. Pupils are equally round and reactive to light. Extraocular movements are intact. . NECK: Supple, no adenopathy; thyroid symmetric, normal size, no bruits. LUNGS: Lungs clear to auscultation. No wheezing, rhonchi, rales. HEART: RRR without murmur, gallop, or rubs. No ectopy. ABDOMEN: Normal, soft, non-tender, no masses or organomegaly. EXTREMITIES: No deformities, edema, skin discoloration, clubbing or cyanosis. NEUROLOGIC: Gait normal. Sensation and strength grossly intact.. ASSESSMENT AND PLAN: ASSESSMENT/PLAN: 1. Nausea and vomiting, unspecified vomiting type - ICD9: 787.01, ICD10: R11.2 (primary diagnosis) - req records [facility] endoscopy - COMP METABOLIC PANEL - CBC - CORTISOL BLD - US ABDOMEN COMPLETE - CT ABD/PEL WO IVCON - ENTERIC CONTRAST (RADIOLOGY PROCEDURE) 2. Weight loss - ICD9: 783.21, ICD10: R63.4 - CT ABD/PEL WO IVCON Bruno Gambino MD Referring Provider: HERNAN ARMAS [[id number]] Allergies As of Date: 10/21/2021 Noted Allergy Reaction DOXYCYCLINE 10/21/2021 11 - Vomiting PENICILLINS 04/06/2012 16 - Unknown Date Reviewed: 10/21/2021 Reviewed by: Bruno Gambino MD - Fully Assessed Reason for Visit: Nausea AND Vomiting [237] Primary Visit Diagnosis:Nausea and vomiting, unspecified vomiting type [R11.2] Other Visit Diagnosis:Weight loss [R63.4] Order(s):COMP METABOLIC PANEL [SQCMP] Order #: [id number] (more content not included)... Normal [facility] Vital Signs Date Time Vital Sign Value Performing Clinician Michaeli lauren 10-21-2021 14:27-0400 Body height 162.6 cm Bruno Gambino MD Work Phone: [facility] 10-21-2021 14:27-0400 Body weight 45.36 kg Bruno Gambino MD Work Phone: [facility] 10-21-2021 14:27-0400 Diastolic blood pressure 81 mm[Hg] Bruno Gambino MD Work Phone: [facility] 10-21-2021 14:27-0400 Heart rate 90 /min Bruno Gambino MD Work Phone: [facility] 10-21-2021 14:27-0400 Systolic blood pressure 112 mm[Hg] Bruno Gambino MD Work Phone: [facility] Encounters Encounter Date Encounter Type Care Provider Facility Start: 03-26-2024 End: 03-26-2024 Bamboo flowsheet Larry Brynn DO Work Phone: [facility] Start: 03-26-2024 End: 03-26-2024 Bamboo flowsheet Larry Brynn DO Work Phone: [facility] Start: 09-21-2023 End: 09-22-2023 ambulatory DELPHINE KHALIL Facility:[facility] Start: 09-13-2023 End: 09-13-2023 ambulatory LARRY BRYNN Not Available Start: 07-24-2023 End: 07-25-2023 ambulatory Cory Daly Facility:[facility] Start: 07-17-2023 End: 07-18-2023 ambulatory CULLEN ALVAREZ Facility:[facility] Start: 03-15-2023 End: 03-15-2023 ambulatory SHAYNA ROBERTS Not Available Start: 01-05-2023 Telephone encounter Shabnam Shahid MD Work Phone: [facility] Comment on above: Appointment (Left me ssage for Patient to call to schedule consult with Dr. Shahid.) Start: 10-21-2022 End: 10-21-2022 Emergency department patient visit HERNAN ARMAS Facility:[facility] Start: 10-02-2022 End: 10-03-2022 ambulatory Cory Daly Facility:[facility] Start: 07-11-2022 End: 07-11-[address] LARRY SWAIN . Facility: Start: 01-15-2022 Encounter for preprocedural laboratory examination DR LARRY SWAIN . [facility] Start: 01-14-2022 End: 01-14-[address] LARRY SWAIN . Facility: Start: 01-11-[address] ALRRY SWAIN . Facili ty:[facility] Start: 01-10-2022 End: 01-11-[address] LARRY SWAIN . Facility: Start: 01-10-2022 End: 01-11-2022 Encounter for preprocedural laboratory examination DR LARRY SWAIN . Facility: Start: 12-13-2021 Telephone encounter Bruno Gambino MD Work Phone: [facility] Comment on above: Results Start: 11-09-2021 End: 11-09-2021 Subsequent hospital visit by physician [facility] [place] [facility]IO [facility] SCAN [facility] Comment on above: Nausea and vomiting, unspecified vomiting type [R11.2] Start: 11-05-2021 Telephone encounter Bruno Gambino MD Work Phone: [facility] Comment on above: Results Start: 10-21-2021 End: 10-21-2021 Patient encounter procedure Bruno Gambino MD Work Phone: [facility] Comment on above: Nausea and vomiting, unspecified vomiting type (Primary Dx); Weight loss Procedures Date Procedure Procedure Detail Performing Clinician Start: 11-09-2021 Ct abdomen & pelvis w/o contrast material Bruno Gambino MD Work Phone: Plan of Treatment Date Care Activity Detail Author Start: 04-08-2025 End: 04-08-2025 Patient encounter procedure 04/08/2025 11:00 AM EST Office Visit [facility] [address] [place] [address] Larry Swain, [address] [place] [address] [facility] Start: 04-08-2024 End: 04-08-2024 Professional / ancillary services management 04/08/2024 2:30 PM EST Ancillary Procedure [facility] [address] [place] [address] [facility] Start: 12-31-2023 Influenza vaccination Influenza Vacc ine (#1) [facility] Start: 12-30-2022 Influenza vaccination INFLUENZA (#1) [facility] Start: 05-01-2022 DEPRESSION ASSESSMENT DEPRESSION ASS ESSMENT [facility] Start: 12-30-2021 Influenza vaccination [facility] Start: 10-21-2021 End: 12-21-2021 CBC panel - Blood by Automated count CBC Lab Routine Nausea and vomiting, unspecified vomiting type Expected: 10/21/2021, Expires: 12/21/2021 [facility] Work Phone: Comment on above: Expected: 10/21/2021 , Expires: 12/21/2021 Start: 10-21-2021 End: 12-21-2021 Comprehensive metabolic 2000 panel - Serum or Plasma COMP METABOLIC PANEL Lab Routine Nausea and vomiting, unspecified vomiting type Expected: 10/21/2021, Expires: 12/21/2021 [facility] Work Phone: Comment on above: Expected: 10/21/2021 , Expires: 12/21/2021 Start: 10-21-2021 End: 12-21-2021 Cortisol [Mass/volume] in Serum or Plasma CORTISOL BLD Lab Routine Nausea and vomiting, unspecified vomiting type Expected: 10/21/2021, Expires: 12/21/2021 [facility] Work Phone: Comment on above: Expected: 10/21/2021 , Expires: 12/21/2021 Start: 09-26-2020 COVID-19 VACCINE (2 - Booster for Brian series) COVID-19 VACCINE (2 - Booster for Brian series) [facility] Start: 2017 PAP TESTING PAP TESTING [facility] Start: 2015 Urine microalbumin profile DTAP,TDAP,TD (1 - Tdap) [facility] Start: 2014 HEPATITIS C SCREENING HEPATITIS C SC REENING [facility] Start: 2014 HIV SCREENING HIV SCREENING [facility] Start: 2010 PEDS TO ADULT TRANSI TION ANNUAL ASSESSMENT PEDS TO ADULT TRANSITION ANNUAL ASSESSMENT [facility] Start: 2008 Adult depression screening assessment DEPRESSION SCREENING [facility] Start: 2008 PEDS TO ADULT TRANSI TION INITIAL DISCUSSION PEDS TO ADULT TRANSITION INITIAL DISCUSSION [facility] Start: 2007 HPV VACCINE (1 - 2-d ose series) HPV VACCINE (1 - 2-dose series) [facility] Start: 2005 HPV VACCINE (1 - 2-d ose series) HPV VACCINE (1 - 2-dose series) [facility] Start: 2002 PNEUMOCOCCAL (1 - PCV) PNEUMOCOCCAL (1 - PCV) [facility] Start: 1996 HEPATITIS B (1 of 3 - 3-dose series) HEPATITIS B (1 of 3 - 3-dose series) [facility] End: 11-20-2022 Ct abdomen & pelvis w/o contrast material CT ABD/PEL WO IVCON Radiology Routine Nausea and vomiting, unspecified vomiting type Weight loss 1 Occurrences starting 10/21/2021 until 11/20/2022 [facility] Work Phone: Comment on above: 1 Occurrences starti ng 10/21/2021 until 11/20/2022 Ct abdomen & pelvis w/o contrast material CT ABD/PEL WO IVCON Radiology Routine Nausea and vomiting, unspecified vomiting type Weight loss 11/09/2021 2:55 PM EDT [facility] Work Phone: [facility] Payers Date Payer Category Payer Medicaid [id number] 2020 Medicaid [employer] [id number] 2020-Present [phone] [address] [place] [address] Medicaid [id number] 2020 Medicaid [id number] 1995 Unknown [id number] 1995 Unknown [id number] 1995 Unknown [id number] 1995 Unknown [id number] 1995 Unknown [id number] [id number] 1996 Unknown [id number] 1995 Unknown [id number] 1995 Unknown [id number] 1995 Unknown [id number] 1995 Unknown [id number] 1995 Unknown [id number] 1958 Self-pay 1958 Unknown [id number] Social History Date Type Detail Facility Start: 05-01-2007 End: 11-03-2022 Tobacco smoking status NHIS Smokes tobacco daily [facility] Start: 05-01-2007 History of tobacco use Cigarette Smo ker [facility] Start: 10-21-2021 Tobacco use and exposure Smoke less tobacco non-user [facility] Start: 10-21-2021 Alcohol intake 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 Monthly or less [facility] How many standard dr inks containing alcohol do you have on a typical day? 1 or 2 [facility] How often do you hav e 6 or more drinks on 1 occasion? Never [facility] Start: 09-13-2022 Education 13 [facility] Start: 11-03-2022 Tobacco Comment Thinking to qu it.Smokes 11-20 pcs of cigarettes per day , within 6-30 minutes of waking up [facility] Start: 10-07-2022 Alcohol Comment caffeine:1-2 c ups per day; pop [facility] Healthcare Clinical Notes 10-21-2021 to 07-24-2023 Telephone Encounter - Janki Leija - 01/05/2023 3:39 PM EDTTelephone Encounter - Lobo Hardwick MA - 12/14/2021 8:23 AM EDTTelephone Encounter - Whitney Trevino PA-C - 12/13/2021 4:12 PM EDT Note Date & Type Note Facility 07-24-2023 Note ENT Ear Irrigation Ear irrigation is a procedure to wash dirt and wax out of your ear canal. This procedure is also called lavage. You may need ear irrigation if you are having trouble hearing because of a buildup of earwax. You may also have ear irrigation as part of the treatment for an ear infection. Getting wax and dirt out of your ear canal can help ear drops work better. Tell a health care provider about: ? Any allergies you have. ? All medicines you are taking, including vitamins, herbs, eye drops, creams, and lsrx-mrc-inhojeu medicines. ? Any problems you or family members have had with anesthetic medicines. ? Any blood disorders you have. ? Any surgeries you have had. This includes any ear surgeries. ? Any medical conditions you have. ? Whether you are or may be . What are the risks? Generally, this is a safe procedure. However, problems may occur, including: ? Infection. ? Pain. ? Hearing loss. ? Fluid and debris being pushed through the eardrum and into the middle ear. This can occur if there are holes in the eardrum. ? Ear irrigation failing to work. What happens before the procedure? ? You will talk with your provider about the procedure and plan. ? You may be given ear drops to put in your ear 15?20 minutes before irrigation. This helps loosen the wax. What happens during the procedure? ? A syringe is filled with water or saline solution, which is made of salt and water. ? The syringe is gently inserted into the ear canal. ? The fluid is used to flush out wax and other debris. The procedure may vary among health care providers and hospitals. What can I expect after the procedure? After an ear irrigation, follow instructions given to you by your health care provider. Follow these instructions at home: Using ear irrigation kits Ear irrigation kits are available for use at home. Ask your health care provider if this is an option for you. In general, you should: ? Use a home irrigation kit only as told by your health care provider. ? Read the package instructions carefully. ? Follow the directions for using the syringe. ? Use water that is room temperature. Do not do ear irrigation at home if you: ? Have diabetes. Diabetes increases the risk of infection. ? Have a hole or tear in your eardrum. ? Have tubes in your ears. ? Have had any ear surgery in the past. ? Have been told not to irrigate your ears. Cleaning your ears ? Clean the outside of your ear with a soft washcloth daily. ? If told by your health care provider, use a few drops of baby oil, mineral oil, glycerin, hydrogen peroxide, or kkzj-nik-lrqyenb earwax softening drops. ? Do not use cotton swabs to clean your ears. These can push wax down into the ear canal. ? Do not put anything into your ears to try to remove wax. This includes ear candles. General instructions ? Take fmbk-den-jxocqbb and prescription medicines only as told by your health care provider. ? If you were prescribed an antibiotic medicine, use it as told by your health care provider. Do not stop using the antibiotic even if your condition improves. ? Keep the ear clean and dry by following the instructions from your health care provider. ? Keep all follow-up visits. This is important. ? Visit your health care provider at least once a year to have your ears and hearing checked. Contact a health care provider if: ? Your hearing is not improving or is getting worse. ? You have pain or redness in your ear. ? You are dizzy. ? You have ringing in your ears. ? You have nausea or vomiting. ? You have fluid, blood, or pus coming out of your ear. Summary ? Ear irrigation is a procedure to wash dirt and wax out of your ear canal. This procedure is also called lavage. ? To perform ear irrigation, ear drops may be put in your ear 15?20 minutes before irrigation. Water or saline solution will be used to flush out earwax and other debris. ? You may be able to irrigate your ears at home. Ask your health care provider if this is an option for you. Follow your health care provider's instructions. ? Clean your ears with a soft cloth after irrigation. Do not use cotton swabs to clean your ears. These can push wax down into the ear canal. This information is not intended to replace advice given to you by your health care provider. Make sure you discuss any questions you have with your health care provider. Document Revised: 08/04/2020 Document Reviewed: 08/04/2020 [employer] Patient Education ? 2022 [employer] Earwax Buildup, Adult The ears produce a substance called earwax that helps keep bacteria out of the ear and protects the skin in the ear canal. Occasionally, earwax can build up in the ear and cause discomfort or hearing loss. What are the causes? This condition is caused by a buildup of earwax. Ear canals are self-cleaning. Ear wax is made in the outer par (more content not included)... [facility] 01-05-2023 Miscellaneous Notes Formattin g of this note might be different from the original. Left message for Patient to call to schedule consult with Dr. Shahid. documented in this encounter [facility] 10-21-2022 Note HNO ID: [id number] Author: RT Jono(R) Service: Radiology Author Type: Technologist Type: Progress Notes Filed: 10/21/2022 5:38 PM Note Text: Radiology Service Progress Note PATIENT NAME: Maddy Hugo DATE OF SERVICE: October 21, 2022 TIME: 5:38 PM PATIENT IDENTITY VERIFICATION COMPLETED USING TWO (2) IDENTIFIERS: Name and Date of confirmed by patient verbally. FALL SCREENING: Has the patient had 2 falls in the last year or 1 fall with injury or currently using an Ambulatory Assistive Device (Walker, Cane, Wheelchair, Crutches, etc.)? Emergency Room Patient: Screened in ED PATIENT GENDER DATA: Female. status: : No status: NO. PATIENT RELEVANT IMPLANT DATA REVIEWED: Not Applicable RADIOLOGY DEPARTMENT: CT; Exam(s) Completed: Face/Mandible PERIPHERAL IV DATA: Not applicable SIGNED BY: RT Jono(R) October 21, 2022 5:38 PM [facility] 01-14-2022 Note OPERATIVE NOTE OPERATION DATE: 01/14/2022 PROCEDURE: LEEP Procedure. PREOPERATIVE DIAGNOSIS: Cervical dysplasia. POSTOPERATIVE DIAGNOSIS: Cervical dysplasia. ANESTHESIA: General. SURGEON: Larry Swain D.O. DIE CUTTING MACHINE OPERATOR: None. BLOOD LOSS: 5 mL. URINE OUTPUT: Yellow and clear. SPECIMEN: Ectocervical tissue. FINDINGS: General cervical dysplasia at the 3, 4 and 7 positions. PROCEDURE: Patient was taken back to the Operating Room where she was given general anesthesia without difficulty. She was then placed in the dorsal lithotomy position. She was then prepped and draped in the normal sterile fashion. A weighted speculum was placed into the patient's vagina. The anterior lip of the cervix was identified and grasped with a single-tooth tenaculum. The patient's cervix was then copiously irrigated using vinegar. Then, a Lugol Solution was also placed onto the patient's cervix which demonstrated increased uptake of the Lugol solution at the 3 o'clock, 4 o'clock and 7 o'clock positions. At that time, the LEEP portion of the procedure was performed, including both the 3 o'clock, 4 o'clock and 7 o'clock positions. The ectocervix was sent out to Pathology. The patient's cervix was then coagulated using suction cautery. Excellent hemostasis was assured. Monsel Solution was then placed onto the patient's cervix to help maintain adequate hemostasis. All instruments were removed from the patient's vagina. The anterior lip of the cervix demonstrated excellent hemostasis. The patient tolerated the procedure well. Sponge, lap, and needle counts were correct x 2. The patient was taken to Recovery Room in stable condition. [facility] 12-14-2021 Miscellaneous Notes Formattin g of this note might be different from the original. Left message for patient Lobo Hardwick MA Labs on 11/09/21 were all normal Labs from 11/09/[address] was normal, without any explanation for patient's symptoms. And I dont see any lab results. Pt calling for results of CT and Labs, please advise Lobo Hardwick MA documented in this encounter [facility] 11-09-2021 Miscellaneous Notes Radiology Service Progress Note PATIENT NAME: Maddy Hugo DATE OF SERVICE: November 09, 2021 TIME: 2:54 PM PATIENT IDENTITY VERIFICATION COMPLETED USING TWO (2) IDENTIFIERS: Name and Date of confirmed by patient verbally. FALL SCREENING: Has the patient had 2 falls in the last year or 1 fall with injury or currently using an Ambulatory Assistive Device (Walker, Cane, Wheelchair, Crutches, etc.)? No PATIENT GENDER DATA: Female. status: : No status: NO. PATIENT RELEVANT IMPLANT DATA REVIEWED: Not Applicable RADIOLOGY DEPARTMENT: CT; Exam(s) Completed: Abdomen/Pelvis PERIPHERAL IV DATA: Not applicable SIGNED BY: RT Akila(R) November 09, 2021 2:54 PM documented in this encounter [facility] 11-05-2021 Miscellaneous Notes Yes pt is aware and following with Hemalatha Hardwick MA Just checking. I received some records from [facility] re: cervical bxs and dysplasia. Does she know about this? Has she had COMMUNITY SERVICE MANAGER f/up? If not she should. documented in this encounter [facility] 10-21-2021 Note HNO ID: [id number] Author: Bruno Gambino MD Service: ? Author Type: Physician Type: Progress Notes Filed: 10/21/2021 3:12 PM Note Text: HPI: Maddy Hugo is a 26 year old female who presents for Nausea AND Vomiting. Pt is here for a hx of above sxs. She has seen mult Drs. Including GI specialist(s). Mult tests done including EGD and colonoscopies. Was told she had diverticular dz. Was dx'd w cyclical vomiting syndrome. Can be 3ds to 2 wk intervals and may go a few wks to 8 wks between episodes. Has tried gluten free and lactose free diets w/o much help. Has had sxs that began at age 19. Has some pain can be epig pain and lower pain as well, comes and goes. Has tried PPI, incomplete relief. Denies htburn regurgitation, but belches air a lot. No dysphagia, 15# wt loss and says she struggles to keep wt on. Has nl b habits and goes about 3-4 BM's per week, denies diarrhea, constipation, no bleeding. Last endoscopies were done 2018. GES was nl in the past. May have US's done as a teenager but not clear which area. Sxs not worse or necessarily come on after po. Min ETOH use, does admit to marijuana use about 3-4 ds of the week. Pt did try going off for > 1 yr and did not make a difference per pt. Denies hx of eating d/o, binge/purge behavior Current Outpatient Medications Medication Sig - norgestimate 0.25 mg-ethinyl estradiol 35 mcg (SPRINTEC, ORTHO-CYCLEN) 0.25-35 mg-mcg per tablet Take 1 tablet by mouth once daily. - ondansetron (ZOFRAN) 4 mg tablet Take 4 mg by mouth every 8 hours as needed for nausea/vomiting. - ALBUTEROL INHALATION Inhale as instructed as needed. No current facility-administered medications for this visit. PAST MEDICAL HISTORY Diagnosis Date - Tonsillitis allergies, ovarian cyst PAST SURGICAL HISTORY Procedure Laterality Date - COLONOSCOPY - EGD FAMILY HISTORY Problem Relation Age of Onset - None Unknown Social History Tobacco Use - Smoking status: Current Every Day Smoker Types: Cigarettes - Smokeless tobacco: Never Used Substance Use Topics - Alcohol use: No - Drug use: Not on file ALLERGIES Allergen Reactions - Doxycycline Vomiting - Penicillins Unknown REVIEW OF SYSTEMS GENERAL: No weight loss, malaise or fevers. HEENT: Negative for frequent or significant headaches, No changes in hearing or vision, no nose bleeds or other nasal problems. NECK: Negative for lumps, goiter, pain and significant neck swelling. RESPIRATORY: Negative for cough, hemoptysis, wheezing or shortness of breath CARDIOVASCULAR: Negative for chest pain, leg swelling or palpitations GI: See HPI : No history of dysuria, frequency or incontinence MUSCULOSKELETAL: Negative for joint pain or swelling, back pain or muscle pain. SKIN: Negative for lesions, rash, and itching PSYCH: Negative for sleep disturbance, mood disorder and recent psychosocial stressors NEURO: No history of headaches, syncope, paralysis, seizures or tremors PHYSICAL EXAMINATION: BP 112/81 Pulse 90 Ht 5' 4 (1.63m) Wt 100 lb (45.4kg) BMI 17.16 kg/(m2). GENERAL APPEARANCE: Well appearing, alert, in no acute distress, well-hydrated, well nourished.. SKIN: Skin color, texture, turgor normal, no suspicious rashes or lesions. EYES: Anicteric sclera. Pupils are equally round and reactive to light. Extraocular movements are intact. . NECK: Supple, no adenopathy; thyroid symmetric, normal size, no bruits. LUNGS: Lungs clear to auscultation. No wheezing, rhonchi, rales. HEART: RRR without murmur, gallop, or rubs. No ectopy. ABDOMEN: Normal, soft, non-tender, no masses or organomegaly. EXTREMITIES: No deformities, edema, skin discoloration, clubbing or cyanosis. NEUROLOGIC: Gait normal. Sensation and strength grossly intact.. ASSESSMENT AND PLAN: ASSESSMENT/PLAN: 1. Nausea and vomiting, unspecified vomiting type - ICD9: 787.01, ICD10: R11.2 (primary diagnosis) - req records [facility] - COMP METABOLIC PANEL - CBC - CORTISOL BLD - US ABDOMEN COMPLETE - CT ABD/PEL WO IVCON - ENTERIC CONTRAST (RADIOLOGY PROCEDURE) 2. Weight loss - ICD9: 783.21, ICD10: R63.4 - CT ABD/PEL WO IVCON Bruno Gambino MD [facility] 10-21-2021 History of Presen t illness Narrative HPI: Maddy Hugo is a 26 year old female who presents for Nausea & Vomiting. Pt is here for a hx of above sxs. She has seen mult Drs. Including GI specialist(s). Mult tests done including EGD and colonoscopies. Was told she had diverticular dz. Was dx'd w cyclical vomiting syndrome. Can be 3ds to 2 wk intervals and may go a few wks to 8 wks between episodes. Has tried gluten free and lactose free diets w/o much help. Has had sxs that began at age 19. Has some pain can be epig pain and lower pain as well, comes and goes. Has tried PPI, incomplete relief. Denies htburn regurgitation, but belches air a lot. No dysphagia, 15# wt loss and says she struggles to keep wt on. Has nl b habits and goes about 3-4 BM's per week, denies diarrhea, constipation, no bleeding. Last endoscopies were done 2018. GES was nl in the past. May have US's done as a teenager but not clear which area. Sxs not worse or necessarily come on after po. Min ETOH use, does admit to marijuana use about 3-4 ds of the week. Pt did try going off for > 1 yr and did not make a difference per pt. Denies hx of eating d/o, binge/purge behavior Current Outpatient Medications Medication Sig norgestimate 0.25 mg-ethinyl estradiol 35 mcg (SPRINTEC, ORTHO-CYCLEN) 0.25-35 mg-mcg per tablet Take 1 tablet by mouth once daily. ondansetron (ZOFRAN) 4 mg tablet Take 4 mg by mouth every 8 hours as needed for nausea/vomiting. ALBUTEROL INHALATION Inhale as instructed as needed. No current facility-administered medications for this visit. PAST MEDICAL HISTORY Diagnosis Date Tonsillitis allergies, ovarian cyst PAST SURGICAL HISTORY Procedure Laterality Date COLONOSCOPY EGD FAMILY HISTORY Problem Relation Age of Onset None Unknown Social History Tobacco Use Smoking status: Current Every Day Smoker Types: Cigarettes Smokeless tobacco: Never Used Substance Use Topics Alcohol use: No Drug use: Not on file ALLERGIES Allergen Reactions Doxycycline Vomiting Penicillins Unknown REVIEW OF SYSTEMS GENERAL: No weight loss, malaise or fevers. HEENT: Negative for frequent or significant headaches, No changes in hearing or vision, no nose bleeds or other nasal problems. NECK: Negative for lumps, goiter, pain and significant neck swelling. RESPIRATORY: Negative for cough, hemoptysis, wheezing or shortness of breath CARDIOVASCULAR: Negative for chest pain, leg swelling or palpitations GI: See HPI : No history of dysuria, frequency or incontinence MUSCULOSKELETAL: Negative for joint pain or swelling, back pain or muscle pain. SKIN: Negative for lesions, rash, and itching PSYCH: Negative for sleep disturbance, mood disorder and recent psychosocial stressors NEURO: No history of headaches, syncope, paralysis, seizures or tremors PHYSICAL EXAMINATION: BP 112/81 Pulse 90 Ht 5' 4 (1.63m) Wt 100 lb (45.4kg) BMI 17.16 kg/(m^2). GENERAL APPEARANCE: Well appearing, alert, in no acute distress, well-hydrated, well nourished.. SKIN: Skin color, texture, turgor normal, no suspicious rashes or lesions. EYES: Anicteric sclera. Pupils are equally round and reactive to light. Extraocular movements are intact. . NECK: Supple, no adenopathy; thyroid symmetric, normal size, no bruits. LUNGS: Lungs clear to auscultation. No wheezing, rhonchi, rales. HEART: RRR without murmur, gallop, or rubs. No ectopy. ABDOMEN: Normal, soft, non-tender, no masses or organomegaly. EXTREMITIES: No deformities, edema, skin discoloration, clubbing or cyanosis. NEUROLOGIC: Gait normal. Sensation and strength grossly intact.. ASSESSMENT AND PLAN: ASSESSMENT/PLAN: 1. Nausea and vomiting, unspecified vomiting type - ICD9: 787.01, ICD10: R11.2 (primary diagnosis) - req records [facility] - COMP METABOLIC PANEL - CBC - CORTISOL BLD - US ABDOMEN COMPLETE - CT ABD/PEL WO IVCON - ENTERIC CONTRAST (RADIOLOGY PROCEDURE) 2. Weight loss - ICD9: 783.21, ICD10: R63.4 - CT ABD/PEL WO IVCON Bruno Gambino MD documented in this encounter [facility] Evaluation note Diagnosis Nausea and vomiting, unspecified vomiting type- Primary Weight loss Loss of [facility] Nausea and vomiting, unspecified vomiting type Weight loss Loss of weight documented in this encounter [facility] Reason for Referral Specialty Diagnoses / Procedures Referred By Contac t Referred To Contact CT IMAGING Diagnoses Nausea and vomiting, unspecified vomiting type Weight loss Procedures CT ABD/PEL WO IVCON CT ABD & PELVIS W/O CONTRAST Bruno Gambino MD [address] [place] [address] Ct Imaging Referral ID Status Reason Start Date Expiration Date Visits Requested Visits Authorized [id number] Waiting for Response Auto-Generat ed Referral 10/21/2021 11/20/2022 1 1 Referral ID Status Reason Start Date Expiration Date V isits Requested Visits Authorized [id number] Closed Auto-Generate d Referral 10/21/2021 12/21/2022 1 1 Summary Purpose Family History No Family History Records FoundNo Family History Records FoundNo Family History Records FoundNo Family History Records FoundNo Family History Records FoundNo Family History Records Found Advance Directives No Advanced Directives Records FoundNo Advanced Directives Records FoundNo Advanced Directives Records FoundNo Advanced Directives Records FoundNo Advanced Directives Records FoundNo Advanced Directives Records Found Additional Source Comments Source Comments (unrecognize d section and content) In the event this informatio n is protected by the Federal Confidentiality of Alcohol and Drug Abuse Patient Records regulations: The Federal rules restrict any use of the information to criminally investigate or prosecute any alcohol or drug abuse patient.[facility] the event this information is protected by the Federal Confidentiality of Alcohol and Drug Abuse Patient Records regulations: The Federal rules restrict any use of the information to criminally investigate or prosecute any alcohol or drug abuse patient.[facility] the event this information is protected by the Federal Confidentiality of Alcohol and Drug Abuse Patient Records regulations: The Federal rules restrict any use of the information to criminally investigate or prosecute any alcohol or drug abuse patient.[facility] the event this information is protected by the Federal Confidentiality of Alcohol and Drug Abuse Patient Records regulations: The Federal rules restrict any use of the information to criminally investigate or prosecute any alcohol or drug abuse patient.[facility] the event this information is protected by the Federal Confidentiality of Alcohol and Drug Abuse Patient Records regulations: The Federal rules restrict any use of the information to criminally investigate or prosecute any alcohol or drug abuse patient.[facility] the event this information is protected by the Federal Confidentiality of Alcohol and Drug Abuse Patient Records regulations: The Federal rules restrict any use of the information to criminally investigate or prosecute any alcohol or drug abuse patient.[facility] Reason for Visit (unrecogniz ed section and content) Reason Comments Nausea & Vomiting Reason Comments Results Specialty Diagnoses / Procedures Referred By Contac t Referred To Contact CT IMAGING Diagnoses Nausea and vomiting, unspecified vomiting type Weight loss Procedures CT ABD/PEL WO IVCON CT ABD & PELVIS W/O CONTRAST Bruno Gambino MD [address] [place] [address] Ct Imaging Referral ID Status Reason Start Date Expiration Date V isits Requested Visits Authorized [id number] Closed Auto-Generate d Referral 10/21/2021 12/21/2022 1 1 Reason Comments Appointment Left message for Luna novoa to call to schedule consult with Dr. Shahid. Care Teams (unrecognized sec tion and content) Bicycle Technician Relationship Specialty Start Date End Date Hernan Armas DO PCP - General Family Practice 04/03/12 Bicycle Technician Relationship Specialty Start Date End Date Hernan Armas DO PCP - General Family Practice 04/03/12 Bicycle Technician Relationship Specialty Start Date End Date Hernan Armas DO PCP - General Family Practice 04/03/12 Bicycle Technician Relationship Specialty Start Date End Date Hernan Armas DO PCP - General Family Practice 04/03/12 Bicycle Technician Relationship Specialty Start Date End Date Hernan Armas DO PCP - General Family Practice 04/03/12 Bicycle Technician Relationship Specialty Start Date End Date Hernan Armas DO PCP - General Family Medicine 04/03/12 Bicycle Technician Relationship Specialty Start Date End Date Hernan Armas MD [address] [place] [address] PCP - General [employer] 11/03/22 INFORMATION SOURCE (unrecogn ized section and content) DATE CREATED AUTHOR 11/18/2021 [facility] DATE CREATED AUTHOR AUTHOR'S ORGANIZ ATION 07/22/2022 [facility] DATE CREATED AUTHOR AUTHOR'S ORGANIZ ATION 10/22/2022 [facility] DATE CREATED AUTHOR AUTHOR'S ORGANIZ ATION 01/07/2023 [facility] DATE CREATED AUTHOR AUTHOR'S ORGANIZ ATION 09/15/2023 [facility] DATE CREATED AUTHOR AUTHOR'S ORGANIZ ATION 09/23/2023 [facility] FOR RECORDS PERTAINING TO PATIENTS WHO ARE OR HAVE BEEN ENROLLED IN A CHEMICAL DEPENDENCY/SUBSTANCEABUSE PROGRAM, SOME INFORMATION MAY BE OMITTED. This clinical summary was aggregated from multiple sources. Caution should be exercised in using it in the provision of clinical care. This summary normalizes information from multiple sources, and as a consequence, information in this document may materially change the coding, format and clinical context of patient data. In addition, data may be omitted in some cases. CLINICAL DECISIONS SHOULD BE BASED ON THE PRIMARY CLINICAL RECORDS. [facility] [facility]. provides no warranty or guarantee of the accuracy or completeness of information in this document.
== END 2024-03-26 19:41 | disposition home or self-care (01) ==
LOC: LAB 19:40
PROVIDERS: PCP Family Medicine; Visit Provider Obstetrics & Gynecology
DX: R87.612 Low grade squamous intraepithelial lesion on cytologic smear of cervix (LGSIL) (principal)
CPT/HCPCS: 88175

== ENCOUNTER 2024-04-08 14:33 | Outpatient (OUT) | payer MEDICAID, SELFPAY ==
--- NOTE | 2024-04-08 14:36 | US_ITS ---
[address] [address] Patient Name: KAIA FRIEND MRN: [id number] date: 1995 Sex: F Assigned Patient Location: [facility] Current Patient Location: Accession/Order Number: [id number] Exam Date: 04/08/2024 14:37 Report Date: 04/09/2024 05:46 At the request of: LARRY NAZARIO Procedure: US pelvis w/ transvaginal EXAMINATION: US pelvis w/ transvaginal HISTORY: PELVIC PAIN COMPARISON: No relevant comparison available. TECHNIQUE: Transabdominal and/or transvaginal sonographic examination was performed as indicated by examination type. FINDINGS: UTERUS: Normal size and appearance. Uterus size: 8.0 x 2.7 x 4.0 cm ENDOMETRIUM: Normal homogeneous appearance. Endometrial thickness: 3 mm RIGHT OVARY: Not seen. LEFT OVARY: Not seen. CUL-DE-SAC: Unremarkable. No significant free fluid. BLADDER: Unremarkable. OTHER: None. US/US pelvis w/ transvaginal IMPRESSION: 1. Unremarkable uterus and endometrium. 2. Neither ovary could be identified. Bilateral adnexa were obscured by bowel. Electronically authenticated by: JOIE JACKMAN Date: 04/09/2024 05:46
== END 2024-04-08 14:34 | disposition home or self-care (01) ==
LOC: NOMS 14:33
PROVIDERS: PCP Family Medicine; Visit Provider Obstetrics & Gynecology
DX: R10.2 Pelvic and perineal pain (principal)
CPT/HCPCS: 76830; 76856